=== PATIENT | male | born 1930 | race Caucasian/White ===

== ENCOUNTER → 2017-01-13 | Outpatient (CLI) | payer MEDICARE, BC ==
[~2017-01-13] MED LIST: ACET-2321 PO; ALBU0.63 AEROSOL; ASPI81TA2 PO; CIPR-151 PO; CLOP75TA PO; CRAN400C PO; FLUT9.9S NAS; FURO-153 PO; GUAI600T PO; LEVO50TA4 PO; LORA10TA62 PO; MAGN400O4 PO; OMEP20CA4 PO; POLY17PO6 PO; POTA10CA37 PO; PROP15DR OP; SENN1TAB79 PO; [UNRECOGNIZED DRUG - CODE] PO
[2017-01-13 19:17] LABS: BLOOD, URINE 1+ (NEGATIVE); COLOR,URINE YELLOW (YELLOW); LEUKOCYTE ESTERASE ,URINE 2+ (NEGATIVE); NITRITE,URINE POSITIVE (NEGATIVE); UROBILINOGEN,URINE 0.2 EU/DL (NORMAL)
[2017-01-13 19:26] LABS: BACTERIA,URINE 2+ (NEGATIVE)
== END ==
LOC: LABN.PM 19:08
PROVIDERS: ATTEND Family Medicine
DX: N39.0 Urinary tract infection, site not specified (principal)
CPT/HCPCS: 81001; 87086

== ENCOUNTER → 2017-01-27 | Outpatient (CLI) | payer MEDICARE, BC ==
[2017-01-27 06:21] LABS: BASOPHILS # (AUTO) 0.1 T/MM3 (0-0.2); BASOPHILS % (AUTO) 1.6 % (0-2); EOSINOPHILS # (AUTO) 0.3 T/MM3 (0-0.5); EOSINOPHILS % (AUTO) 6.1 % (0-4); HCT - HEMATOCRIT 37.9 % (41-53); HGB - HEMOGLOBIN 12.2 GM/DL (13.5-17.5); IMMATURE GRANULOCYTE # (AUTO) 0.01 T/MM3 (0.00-0.03); IMMATURE GRANULOCYTE % (AUTO) 0.2 % (0.0-0.5); LYMPHOCYTES # (AUTO) 1.5 T/MM3 (1-4.8); LYMPHOCYTES % (AUTO) 26.2 % (23-45); MEAN CORPUSCULAR HGB 28.8 UUG (26-34); MEAN CORPUSCULAR HGB CONC(MCHC 32.2 GM/DL (31-37); MEAN CORPUSCULAR VOLUME 89.4 UM3 (80-100); MONOCYTES # (AUTO) 0.2 T/MM3 (0-0.8); MONOCYTES % (AUTO) 4.3 % (0-9.0); NEUTROPHILS #(AUTO)-ABSOLUTE 3.4 T/MM3 (1.8-7.7); NEUTROPHILS % (AUTO) 61.6 % (33-66); RED BLOOD COUNT 4.24 M/MM3 (4.50-5.90); WBC - WHITE BLOOD COUNT 5.6 T/MM3 (4.5-11.0)
[2017-01-27 06:32] LABS: ANION GAP 10 MEQ/L (5-15); BUN/CREATININE RATIO 15 RATIO (6-26); CALCIUM 8.8 MG/DL (8.4-10.2); CHLORIDE 103 MEQ/L (98-107); CO2 - CARBON DIOXIDE 27 MEQ/L (22-30); CREATININE 0.8 MG/DL (0.8-1.5); GLOMERULAR FILTRATION RATE 91; GLUCOSE 90 MG/DL (75-110); MAGNESIUM 2.3 MG/DL (1.6-2.3); SODIUM 140 MEQ/L (134-144)
[2017-01-27 06:40] LABS: PROBNP 160 PG/ML (0-175)
== END ==
LOC: LABNH.PM 01:51
PROVIDERS: ATTEND Family Medicine
DX: D64.9 Anemia, unspecified (principal); I50.9 Heart failure, unspecified; R35.8 Other polyuria; Z79.899 Other long term (current) drug therapy
CPT/HCPCS: 36415; 80048; 83735; 83880; 85025; 86677; P9604

== ENCOUNTER → 2017-02-05 | Outpatient (CLI) | payer MEDICARE, BC ==
[2017-02-05 17:38] LABS: C. DIFFICILE TOXIN B NEGATIVE (NEGATIVE)
== END ==
LOC: LABN.PM 15:54
PROVIDERS: ATTEND Family Medicine
DX: A04.7 Enterocolitis due to Clostridium difficile (principal)
CPT/HCPCS: 87493

== ENCOUNTER 2017-02-18 18:20 | Emergency (ER) | payer MEDICARE, BC ==
[~2017-02-18] VITALS: Ht 170.2 cm; Wt 76.4 kg
[~2017-02-18 18:20] MED LIST changes: -[UNRECOGNIZED DRUG - CODE] PO; +[UNRECOGNIZED DRUG - CODE] SSW
--- OUTSIDE RECORDS SUMMARY | 2017-02-18 18:25 | XMS REPORT | Referral Summary ---
Author Organization Unknown Address Unknown Phone Unavailable Care Team Providers Care Investigation Specialist Name Role Phone Jun Lucio Primary Care Physician [phone] Encounter VC Date(s): 12/08/14 - 12/08/14 [facility], [address] [place] [id number]- Discharge Diagnosis: Hypothyroid Discharge Diagnosis: Polymyalgia rheumatica Discharge Diagnosis: Neurogenic bladder Discharge Diagnosis: Benign essential HTN Discharge Diagnosis: Constipation Discharge Diagnosis: Back pain Discharge Disposition: Home or Self Care Attending Physician: Stas Lucio MD Admitting Physician: Stas Lucio MD Vital Signs Most recent to 1 oldest [Reference Range]: Blood Pressure 130/70 mmHg [90-140/60-90 mmHg] (12/08/14 11:05 AM) Problem List Condition Effective Dates Status Health Status Informant Allergic Active rhinitis(Confirmed) arthritis(Confirmed) Resolved Back pain(Confirmed) Resolved Benign essential Resolved HTN(Confirmed) Benign essential Active hypertension(Confirm ed) 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) Cardiomegaly(Confirm Active ed) Cerebrovascular Resolved accident(Confirmed) Cerebrovascular Resolved disease(Confirmed) Chronic Active prostatitis(Confirme d) Chronic sinus Active infection(Confirmed) Conjunctivitis(Confi Active rmed) Constipation(Confirm Active ed) COPD(Confirmed) Resolved Generalized Active osteoarthrosis, involving multiple sites(Confirmed) Disorder - Active ulcers(Confirmed) Disorder - blood Active clots lungs/legs(Confirmed ) Diverticula, bladder Active - multiple, wide-mouth(Confirmed ) EDEMA(Confirmed) Resolved Hearing Active loss(Confirmed) hyperlipidemia(Confi Resolved rmed) hypertension(Confirm Resolved ed) Adult Active hypothyroidism(Confi rmed) Elevated blood Active sugar(Confirmed) LPRD Active (laryngopharyngeal reflux disease)(Confirmed) Neurogenic Resolved bladder(Confirmed) Overweight(Confirmed Active ) Chronic Active paraplegia(Confirmed ) Polymyalgia Resolved rheumatica(Confirmed ) Prostatism(Confirmed Active )1 TIA(Confirmed) Resolved Chicken Active pox(Confirmed) Vasomotor Active rhinitis(Confirmed) 1see conversion document Allergies, Adverse Reactions, Alerts Substance Reaction Severity Status azithromycin Active ciprofloxacin Adverse Reaction Active Unknown penicillin Unknown Active Eczema (rash) quinapril Adverse Reaction Active sulfamethoxazole Adverse Reaction Active sulfanilamide topical Unknown Active Medications [place] 5 mg-325 mg oral tablet 2 tabs, Oral, q8hr, [facility] [phone], # 30 tabs, 0 Refill(s) Special Instructions: [facility] [phone] Start Date: 07/12/14 Status: Ordered [place] 5 mg-325 mg oral tablet 1 tabs, Oral, q8hr, [facility] [phone], # 30 tabs, 0 Refill(s) Special Instructions: [facility] [phone] Start Date: 07/12/14 Status: Ordered oxyCODONE 5 mg oral tablet 0.5 tabs, Oral, q6hr, as needed for pain, 0 Refill(s) Start Date: 03/05/14 Status: Ordered Results Chemistry Most recent to 1 oldest [Reference Range]: Sodium Lvl [135-144 142 mEq/L mEq/L] (12/08/14 11:27 AM) Potassium Lvl 3.7 mEq/L [3.5-5.2 mEq/L] (12/08/14: AM) Chloride [99-111 106 mEq/L mEq/L] (12/08/14 11: AM) CO2 [23-31 mEq/L] 24 mEq/L (12/08/14: AM) AGAP [3-20] 12 (12/08/14 11: AM) BUN [8-26 mg/dL] 13 mg/dL (12/08/14 11: AM) Glucose Lvl [70-99 104 mg/dL mg/dL] *HI* (12/08/14: AM) Creatinine Lvl 0.83 mg/dL [0.72-1.25 mg/dL] (12/08/14: AM) eGFR [>60 mL/min] >60 mL/min 1 (12/08/14: AM) Calcium Lvl 9.2 mg/dL [8.9-10.5 mg/dL] (12/08/14 11:27 AM) Albumin Lvl [3.4-4.8 3.8 gm/dL gm/dL] (12/08/14 11:27 AM) Total Protein 6.2 gm/dL [6.2-8.1 gm/dL] (12/08/14 11:27 AM) Globulin [1.8-4.0 2.4 gm/dL gm/dL] (12/08/14 11:27 AM) ALT [0-55 unit/L] 16 unit/L (12/08/14 11:27 AM) AST [5-34 unit/L] 17 unit/L (12/08/14 11:27 AM) Alk Phos [40-150 117 unit/L unit/L] (12/08/14 11:27 AM) Bili Total [0.2-1.2 0.5 mg/dL mg/dL] (12/08/14 11:27 AM) TSH with Reflex Free 2.39 T4 [0.35-4.94] (12/08/14 11:27 AM) 1Result Comment: Multiply eGFR results by 1.21 for race. 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 Benign essential HTN This issue is stable and appropriate refills, lab, and f/ u have been discussed. The patient reports their blood pressure has been stable at home and is not having any significant or related problems. There has been no chest pain, chest pressure, soa/marie. Constipation Trial of linzess 145mg po daily for 14 days and call report. Side effects discussed. NH papers completed and returned. Recheck in at least 60 days. Hypothyroid This issue is stable and appropriate refills, lab, and f/u have been discussed. Recheck lab pending. Last TSH was a bit elevated and could contribute to constipation. Ordered: Comprehensive Metabolic Panel TSH with Reflex Free T4 Neurogenic bladder This issue is stable and appropriate refills, lab, and f/u have been discussed. Polymyalgia rheumatica This issue is stable and appropriate refills, lab, and f/u have been discussed.
--- OUTSIDE RECORDS SUMMARY | 2017-02-18 18:25 | XMS REPORT | Continuity of Care Document ---
Author Author Erica Brannon LPN Ambulatory Address [address] [place] [address] Phone Unavailable Care Team Providers Care Customer Service Advocate Name Role Phone Stas Lucio PP Unavailable Stas Lucio RP Unavailable Payers Payer name Insurance type Covered libertarian ID Authorization(s) Unknown Problems Condition Effective Dates (start - stop) Clinical Status Low back pain - *Chronic Spinal stenosis, unspecified region other than cer - *Chronic Hypertension, Benign - *Chronic Polymyalgia rheumatica - *Chronic Unspecified cerebrovascular disease - *Chronic Long-term Use of Anticoagulants - *Chronic BPH - *Chronic Other abnormal blood chemistry - *Chronic FM HX PROSTATE MALIG - PURE HYPERCHOLESTEROLEM - HYPERTENSION NOS - CARDIOMEGALY - TRANS CEREB ISCHEMIA NOS - ALLERGIC RHINITIS NEC - BPH W URINARY OBS/LUTS - GENERAL OSTEOARTHROSIS - OSTEOARTHROS NOS-L/LEG - 725 - POLYMYALGIA RHEUMATICA - Spinal stenosis of lumbar region - *Symptomatic 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 - * Controlled Family history of malignant neoplasm of prostate - *Routine Lumbago - *Acute Hypertension, Benign - *Chronic Unspecified cerebrovascular disease - *Chronic BPH - *Chronic Polymyalgia rheumatica - *Chronic Other and unspecified hyperlipidemia - *Chronic Polymyalgia rheumatica - *Chronic Hypertension, Benign - *Controlled Other and unspecified hyperlipidemia - *Chronic COPD - *Chronic BPH - *Controlled OTHER ABNORMAL GLUCOSE - *Controlled Hypertension, Benign - *Chronic Other and unspecified hyperlipidemia - *Chronic Osteoarthrosis, generalized, involving unspecified site - * Chronic Polymyalgia rheumatica - *Chronic OTHER ABNORMAL GLUCOSE - *Chronic BPH - *Chronic GERD - *Chronic Gout, unspecified - *Chronic Sinusitis, Acute - *Acute Hypertension, Benign - *Chronic Polymyalgia rheumatica - *Chronic Other and unspecified hyperlipidemia - *Chronic Lower extremity weakness - *Acute Lower back pain - *Acute Knee pain - *Chronic Polymyalgia rheumatica - *Chronic Hypertension, benign - *Chronic Benign prostatic hypertrophy - *Chronic Cerebrovascular disease, unspecified - *Chronic Other malaise and fatigue - *Chronic Polymyalgia rheumatica - *Chronic Allergic rhinitis, cause unspecified - *Chronic Long-term Use of Anticoagulants - *Chronic Other and unspecified hyperlipidemia - *Chronic Lumbago - *Chronic Long-term Use of Anticoagulants - *Chronic Hypertension, Benign - *Chronic Allergic rhinitis, cause unspecified - *Chronic BPH - *Controlled Osteoarthritis, Generalized - *Chronic Polymyalgia rheumatica - Remission Shoulder tendinitis - *Chronic Hypertension, Benign - *Chronic Other and unspecified hyperlipidemia - *Chronic COPD - *Chronic BPH - *Chronic Noninfectious Gastroenteritis - *Resolved Polymyalgia rheumatica - *Chronic GERD - *Chronic NEED FOR PROPHYLACTIC VACCINATION WITH COMBINED [id number] ( DTP) (DTAP) VACCINE - BPH - *Controlled Family history of malignant neoplasm of prostate - Asymptomatic Family History Family Member Diagnosis Age At Onset Status Mother (Unknown) Cancer - unknown Yes Father (Unknown) CAD Yes Social History Social History Element Description Quantity Unknown Allergies, Adverse Reactions, Alerts Substance Reaction Severity Status CIPROFLOXACIN Unknown Unknown PENICILLINS Unknown Unknown SULFANILAMIDE Unknown Unknown QUINAPRIL HCL Unknown Medications Medication Instructions Dosage Effective Dates (start - stop) Status Atrovent 0.06 % nasal spray 2 sprays to ea nostril tid prn - Active finasteride 5 mg tablet Take 1 tablet by mouth every day. - Active atenolol 50 mg tablet Take 1 tablet by mouth every day. - Active Lasix 20 mg tablet Take 0.5 tablets by mouth every day. - Active Immunizations Vaccine Date Status Comments Tdap (Boostrix r) completed pneumo (2 yrs or older) (PPV23) completed - Completed reason: source unspecified Td (adult) completed - Completed reason: source unspecified Results Test Name Date and Time Measure Units Reference Range Abnormal Flag Comments Unknown Vital Signs Date / Time: Height Weight Pulse Rate Blood Pressure Temperature /13:05:00 68.00 in 168.00 lbs 140/80 mm[Hg] 98.0 F Procedures Procedure Date Unknown Encounters Encounter Location Date Patient Visit [facility] Patient Visit Conversion Patient Visit [facility] Urology Patient Visit [facility] Patient Visit [facility] Patient Visit [facility] FC Pain Patient Visit [facility] Patient Visit [facility] Patient Visit [facility] New Patient Visit [facility] Patient Visit [facility] New Patient Visit [facility] Mur Rheum Patient Visit [facility] Patient Visit [facility] Patient Visit [facility] Mur Rheum Patient Visit [facility] Patient Visit [facility] Urology Patient Visit [facility] Advance Directives Directive Effective Date Unknown
--- OUTSIDE RECORDS SUMMARY | 2017-02-18 18:25 | XMS REPORT | Referral Summary ---
Author Author [facility] Organization [facility] Address Unknown Phone Unavailable Care Team Providers Care Coordinator Volunteer Services Name Role Phone Jun Lucio Primary Care Physician [phone] Encounter VC Date(s): 07/16/15 - 07/16/15 [facility] [address] [place] [address]- Discharge Disposition: 01-Home or Self Care Attending Physician: Stas Lucio MD Admitting Physician: Stas Lucio MD Vital Signs Most recent to 1 oldest [Reference Range]: Blood Pressure 120/60 mmHg [90-140/60-90 mmHg] (07/16/15 1:25 PM) Problem List Condition Effective Dates Status Health Status Informant Allergic Active rhinitis(Confirmed) arthritis(Confirmed) Resolved Back pain(Confirmed) Resolved Benign essential Resolved HTN(Confirmed) Benign essential Active hypertension(Confirm ed) 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) Cardiomegaly(Confirm Active ed) Cerebrovascular Resolved accident(Confirmed) Cerebrovascular Resolved disease(Confirmed) Chronic Active osteomyelitis of spine(Confirmed) Chronic Active prostatitis(Confirme d) Chronic sinus Active infection(Confirmed) Ho catheter Active problem(Confirmed) Conjunctivitis(Confi Active rmed) Constipation(Confirm Active ed) COPD(Confirmed) [...] rheumatica(Confirmed ) Prostatism(Confirmed Active )1 TIA(Confirmed) Resolved Chronic indwelling Active ho catheter(Confirmed) Chicken Active pox(Confirmed) Vasomotor Active rhinitis(Confirmed) 1see conversion document Allergies, Adverse Reactions, Alerts Substance Reaction Severity Status azithromycin Active Influenza Virus Vaccine1 Active penicillin Unknown Active Eczema (rash) quinapril Adverse Reaction Active sulfamethoxazole Adverse Reaction Active sulfanilamide topical Unknown Active 1[facility] documented as allergy. Medications [place] 5 mg-325 mg oral tablet 2 tabs, Oral, q8hr, [facility] [phone], # 30 tabs, 0 Refill(s) Start Date: 07/12/14 Status: Ordered [place] 5 mg-325 mg oral tablet 1 tabs, Oral, q8hr, [facility] [phone], # 30 tabs, 0 Refill(s) Start Date: 07/12/14 Status: Ordered oxyCODONE 5 mg oral tablet 0.5 tabs, Oral, q6hr, as needed for pain, 0 Refill(s) Start Date: 03/05/14 Status: Ordered Results No data available for this section Immunizations Vaccine Date Refusal Reason tetanus/diphth/pertuss (Tdap) [...] smoker Assessment and Plan Extracted from: Title: Ambulatory Patient Education Author: Stas Lucio MD Date: Family Medicine Diabetes and Exercise Exercising regularly is important. It is not just about losing weight. It has many health benefits, such as: Improving your overall fitness, flexibility, and endurance. Increasing your bone density. Helping with weight control. Decreasing your body fat. Increasing your muscle strength. Reducing stress and tension. Improving your overall health. People with diabetes who exercise gain additional benefits because exercise: Reduces appetite. Improves the body's use of blood sugar (glucose). Helps lower or control blood glucose. Decreases blood pressure. Helps control blood lipids (such as cholesterol and triglycerides). Improves the body's use of the hormone insulin by: Increasing the body's insulin sensitivity. Reducing the body's insulin needs. Decreases the risk for heart disease because exercising: Lowers cholesterol and triglycerides levels. Increases the levels of good cholesterol (such as high-density lipoproteins [HDL]) in the body. Lowers blood glucose levels. YOUR ACTIVITY PLAN Choose an activity that you enjoy and set realistic goals. Your health care provider or letter of credit clerk can help you make an activity plan that works for you. Exercise regularly as directed by your health care provider. This includes: Performing resistance training twice a week such as push-ups, sit-ups, lifting weights, or using resistance bands. Performing 150 minutes of cardio exercises each week such as walking, running, or playing sports. Staying active and spending no more than 90 minutes at one time being inactive. Even short bursts of exercise are good for you. Three 10-minute sessions spread throughout the day are just as beneficial as a single 30-minute session. Some exercise ideas include: Taking the dog for a walk. Taking the stairs instead of the elevator. Dancing to your favorite song. Doing an exercise video. Doing your favorite exercise with a friend. RECOMMENDATIONS FOR EXERCISING WITH TYPE 1 OR TYPE 2 DIABETES Check your blood glucose before exercising. If blood glucose levels are greater than 240 mg/dL, check for urine ketones. Do not exercise if ketones are present. Avoid injecting insulin into areas of the body that are going to be exercised. For example, avoid injecting insulin into: The arms when playing tennis. The legs when jogging. Keep a record of: Food intake before and after you exercise. Expected peak times of insulin action. Blood glucose levels before and after you exercise. The type and amount of exercise you have done. Review your records with your health care provider. Your health care provider will help you to develop guidelines for adjusting food intake and insulin amounts before and after exercising. If you take insulin or oral hypoglycemic agents, watch for signs and symptoms of hypoglycemia. They include: Dizziness. Shaking. Sweating. Chills. Confusion. Drink plenty of water while you exercise to prevent dehydration or heat stroke. Body water is lost during exercise and must be replaced. Talk to your health care provider before starting an exercise program to make sure it is safe for you. Remember, almost any type of activity is better than none. Document Released: 12/11/2004 Document Revised: 02/05/2015 Document Reviewed: [employer] Patient Information 2015 [employer]. This information is not intended to replace advice given to you by your health care provider. Make sure you discuss any questions you have with your health care provider. No follow up information was provided. Extracted from: Title: Office Visit Note Author: Stas Lucio MD Date: 07/16/15 Assessment/Plan Adult hypothyroidism This issue is stable and appropriate refills, lab, and f/ u have been discussed. Benign essential HTN This issue is stable and appropriate refills, lab, and f/ u have been discussed. The patient reports their blood pressure has been stable at home and is not having any significant or related problems. There has been no chest pain, chest pressure, soa/marie. Chronic indwelling ho catheter This issue is stable and appropriate refills, lab, and f/u have been discussed. Recently changed in the ER on 07/12. UA showed 3+ blood from the ER. Chronic osteomyelitis of spine This issue is stable and appropriate refills, lab, and f/u have been discussed. Chronic paraplegia This issue is stable and appropriate refills, lab, and f/u have been discussed. The patients group home orders were completed and returned. Any family present agreed with the current plan. The patient is to f/ u in sixty days or sooner if needed. Any pertinent lab was also ordered. The patient has family members present who are agreeable with today's plan and have no additional concerns or requests. [facility] aid here. Disorder - blood clots lungs/legs This issue is stable and appropriate refills , lab, and f/u have been discussed. Ho catheter problem The patient's issue is nearly or completely resolved. There is no further issues or testing desired by them at this time. Hearing loss This issue is stable and appropriate refills, lab, and f/u have been discussed. Neurogenic bladder This issue is stable and appropriate refills, lab, and f/u have been discussed. Polymyalgia rheumatica To Rheumatology due to recent ESR of 71 and CRP of 40. Somewhat argumentative about the need for this consult but felt to be medically worthwhile due to continued bilateral shoulder pain and past PMR.
--- OUTSIDE RECORDS SUMMARY | 2017-02-18 18:25 | XMS REPORT | Continuity of Care Document ---
Author Author [facility] Organization [facility] Address Unknown Phone Unavailable Allergies Active Description Code Type Severity Reaction Onset Reported/Identified Relationship to Patient Clinical Status Yes Biaxin Drug Allergy N/A Adverse Reaction 09/15/2013 Yes Cipro Drug Allergy N/A Adverse Reaction 09/15/2013 Yes Penicillins Drug Allergy Moderate Eczema (rash) 09/15/2013 Yes quinapril Drug Allergy N/A Adverse Reaction 09/15/2013 Yes Sulfa (Sulfonamide Antibiotics Drug Allergy N/A Adverse Reaction 09/15/2013 Yes No Known Food Allergies Food Allergy N/A N/A 12/27/2013 Yes ciprofloxacin NKMA N/A Adverse Reaction Unknown 01/31/2014 Yes penicillin NKMA N/A Unknown Eczema (rash) 01/31/2014 Yes quinapril NKMA N/A Adverse Reaction 01/31/2014 Yes sulfamethoxazole NKMA N/A Adverse Reaction 01/31/2014 Yes sulfanilamide topical NKMA N/A Unknown 01/31/2014 Yes azithromycin NKMA N/A N/A 06/22/2014 Yes Influenza Virus Vaccine NKMA N/A N/A 07/06/2015 Medications Problems Date Dx Coded Attending Type Code Diagnosis Diagnosed By 09/15/2013 Neto GARCIA, Kingsley J Final 112.0 THRUSH 09/15/2013 Neto GARCIA, Kingsley J Final 276.1 HYPOSMOLALITY 09/15/2013 Neto GARCIA, Kingsley J Final 276.69 FLUID OVERLOAD NEC 09/15/2013 Neto GARCIA, Kingsley J Final 285.1 ACUTE POSTHEMOR ANEMIA 09/15/2013 Neto GARCIA, Kingsley J Final 344.1 PARAPLEGIA 09/15/2013 Neto GARCIA, Kingsley J Final 348.30 ENCEPHALOPATHY NOS 09/15/2013 Neil Duque MDolfo J Final 401.0 MALIGNANT HYPERTENSION 09/15/2013 Neto GARCIA Kingsley J Final 453.42 ACUTE DVT DISTAL LEG 09/15/2013 Neto GARCIA, Kingsley J Final 458.0 ORTHOSTATIC HYPOTENSION 09/15/2013 Neil Duque MDolfo Tasneem Final 600.00 PROS HYPERTR S OBST/LUTS 09/15/2013 Neto GARCIA, Kingsley J Final 608.86 EDEMA MALE GENITAL ORGAN 09/15/2013 Neto GARCIA, Kingsley J Final 695.89 ERYTHEMATOUS COND NEC 09/15/2013 Neil Duque MDolfo J Final 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 09/15/2013 Christiane Duque MDfo Tasneem Final 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 09/15/2013 Neil Duque MDolrhonda Boateng Final 998.12 HEMATOMA COMPLICATING PX 09/15/2013 Neil Duque MDolfo Tasneem Final V49.86 DNR STATUS 12/27/2013 Ganga Hester MD Final 276.8 HYPOPOTASSEMIA 12/27/2013 Ganga Hester MD Final 401.9 HYPERTENSION NOS 12/27/2013 Ganga Hester MD Final 435.9 TRANS CEREB ISCHEMIA NOS 12/27/2013 Ganga Hester MD Final 530.81 ESOPHAGEAL REFLUX 12/27/2013 Ganga Hester MD Final 600.00 PROS HYPERTR S OBST/LUTS 12/27/2013 Ganga Hester MD Final 724.02 SP STENOSIS-LUMB S KLAUS 12/27/2013 Ganga Hester MD Final 780.97 ALTERED MENTAL STATUS 12/27/2013 Ganga Hester MD Final 998.83 NON-HEALING SURG WND 12/27/2013 Ganga Hester MD External E878.8 ABN RXN-SURGICAL PX NEC 12/27/2013 Gagna Hester MD Final V12.51 HX TRACY THROMBUS/EMBOLISM Procedures Code Description Performed By Performed On 12.11 SPINAL CANAL EXPLOR Vladimir Ivey III, MD 09/16/2013 38.7 INTERRUPTION VENA CAVA Vladimir Castle III, MD 09/16/2013 77.79 EXC BONE FOR GRAFT Vladimir Ivey III, MD 09/16/2013 80.51 IV DISC EXCISION Vladimir Castle III, MD 09/16/2013 81.05 POSTERIOR DORSAL FUSION Vladimir Castle III, MD 09/16/2013 81.62 REPLACE FEMORAL HEAD NEC Vladimir Castle III, MD 09/16/2013 03.02 REOPEN LAMINECTOMY SITE Vladimir Castle III, MD 09/27/2013 38.93 VENOUS CATHETER NEC Vladimir Castle III, MD 10/10/2013 Results Encounters ACCT No. Visit Date/Time Discharge Status Pt. Type Provider Facility Loc./Unit Complaint [id number] 12/27/2013 11:36:00 2013 16:43:00 DIS Inpatient Mir GARCIA, Ganga Lema [facility] [id number] [id number] 09/15/2013 18:50:00 2013 12:50:00 DIS Inpatient Neto GARCIA, Kingsley Boateng [facility] [id number]
--- OUTSIDE RECORDS SUMMARY | 2017-02-18 18:25 | XMS REPORT | Continuity of Care Document ---
Author Author Verito Acuña MA [facility] Ambulatory Address [address] [place] [address] Phone Care Team Providers Care Corrections Officer Name Role Phone Stas Lucio PP Unavailable Stas Lucio RP Unavailable Payers Payer name Insurance type Covered republican ID Authorization(s) Unknown Problems Condition Effective Dates (start - stop) Clinical Status Osteoarthritis, Generalized - *Chronic Polymyalgia rheumatica - Remission Shoulder tendinitis - *Chronic FM HX PROSTATE MALIG - [...] cause unspecified - *Chronic BPH - *Controlled Hypertension, Benign - *Chronic Other and unspecified hyperlipidemia - *Chronic COPD - *Chronic BPH - *Chronic Noninfectious Gastroenteritis - *Resolved Polymyalgia rheumatica - *Chronic GERD - *Chronic NEED FOR PROPHYLACTIC VACCINATION WITH COMBINED [id number] ( DTP) (DTAP) VACCINE - Low back pain - *Chronic Spinal stenosis, unspecified region other than cer - *Chronic Hypertension, Benign - *Chronic Polymyalgia rheumatica - *Chronic Unspecified cerebrovascular disease - *Chronic Long-term Use of Anticoagulants - *Chronic BPH - *Chronic Other abnormal blood chemistry - *Chronic BPH - *Controlled Family history of malignant neoplasm of prostate - Asymptomatic Family History Family Member Diagnosis Age At Onset Status Mother (Unknown) Cancer - unknown Yes Father (Unknown) CAD Yes Social History Social History Element Description Quantity caffeine coffee 1 per wk Allergies, Adverse Reactions, Alerts Substance Reaction Severity Status CIPROFLOXACIN Unknown Unknown PENICILLINS Unknown Unknown SULFANILAMIDE Unknown Unknown QUINAPRIL HCL Unknown Medications Medication Instructions Dosage Effective Dates (start - stop) Status Atrovent 0.06 % Nasal [place] 2 sprays to ea nostril tid prn [...] Height Weight Pulse Rate Blood Pressure Temperature /09:50:00 68.00 in 172.30 lbs 55 /min 184/93 mm[Hg] 96.5 F Procedures Procedure Date Unknown Encounters Encounter Location Date Patient Visit [facility] Mur Rheum Patient Visit Conversion Patient Visit [facility] Urology Patient Visit [facility] New FM Patient Visit [facility] New FM Patient Visit [facility] FC Pain Patient Visit [facility] Patient Visit [facility] FM Patient Visit [facility] New FM Patient Visit [facility] New FM Patient Visit [facility] Patient Visit [facility] Rheum Patient Visit [facility] Patient [facility] Patient Visit [facility] Patient Visit [facility] Patient Visit [facility] Urology Patient Visit [facility] Advance Directives Directive Effective Date Unknown
--- OUTSIDE RECORDS SUMMARY | 2017-02-18 18:25 | XMS REPORT | Referral Summary ---
Author Author [facility] Organization [facility] Address Unknown Phone Unavailable Care Team Providers Care Maternity Nurse Name Role Phone Storm Patino Primary Care Physician [phone] Encounter VC Date(s): 05/15/15 - 05/15/15 [facility] [address] [place] [address]- Discharge Disposition: 01-Home or Self Care Attending Physician: Stas Lucio MD Admitting Physician: Stas Lucio MD Vital Signs Most recent to 1 oldest [Reference Range]: Blood Pressure 140/80 mmHg [90-140/60-90 mmHg] (05/15/15 3:05 PM) Problem List Condition Effective Dates Status [...] Reaction Active sulfanilamide topical Unknown Active [facility] documented as allergy. Medications acetaminophen 325 mg oral tablet 650 mg 2 tabs, Oral, q4hr, 0 Refill(s) Start Date: 07/24/15 Status: Ordered Alaway 0.025% ophthalmic solution 1 drops, Eye-Both, q8hr, # 10 mL, 0 Refill(s) Start Date: 07/24/15 Status: Ordered aspirin 81 mg oral tablet 81 mg 1 tabs, Oral, TID, NEEDED FOR CANCER PAIN, 0 Refill(s) Start Date: 07/24/15 Status: Ordered Atrovent 42 mcg/inh nasal spray 2 sprays, Nasal, BID, # 15 mL, 0 Refill(s) Start Date: 07/24/15 Status: Ordered baclofen 10 mg oral tablet See Instructions, 1 tabs Oral BID AND 1.5 TABS AT HS, 0 Refill(s), Indication: MUSCLE SPASMS Start Date: 07/24/15 Status: Ordered cefdinir 300 mg oral capsule 300 mg 1 caps, Oral, q12hr, # 20 caps, 0 Refill(s) Start Date: 07/24/15 Stop Date: 08/03/15 Status: Ordered Cipro 500 mg oral tablet 500 mg 1 tabs, Oral, q24hr, PROPHYLAXIS PER DR HONG, 0 Refill(s) Start Date: 07/24/15 Status: Ordered Fleet Enema 118 mL, Rectal, Once, as needed for constipation, 0 Refill(s) Start Date: 07/24/15 Status: Ordered Lasix 40 mg oral tablet 40 mg 1 tabs, Oral, Daily, # 30 tabs, 0 Refill(s) Start Date: 07/24/15 Status: Ordered Micro-K 10 oral capsule, extended release 10 mEq 1 caps, Oral, BID, # 60 caps, 0 Refill(s) Start Date: 07/24/15 Status: Ordered Milk of Magnesia 30 mL, Oral, Bedtime (once a day), 0 Refill(s) Start Date: 07/24/15 Status: Ordered MiraLax oral powder for reconstitution 17 g, Oral, Daily, dissolve in water before taking, # 255 g, 0 Refill(s) Start Date: 07/24/15 Status: Ordered Miscellaneous DME DME Item KNEE HIGH COMPRESSION STOCKINGS 15-20MMHG ON IN AM & OFF AT HS, See Instructions, # 1 Each, 0 Refill(s), Supply Start Date: 07/24/15 Status: Ordered [place] 5 mg-325 mg oral tablet 2 tabs, Oral, q8hr, [employer] [phone], # 30 tabs, 0 Refill(s) Start Date: 07/12/14 Status: Ordered [place] 5 mg-325 mg oral tablet 1 tabs, Oral, q8hr, [employer] [phone], # 30 tabs, 0 Refill(s) Start Date: 07/12/14 Status: Ordered Norvasc 5 mg oral tablet 5 mg 1 tabs, Oral, Daily, # 30 tabs, 0 Refill(s) Start Date: 07/24/15 Status: Ordered nystatin 500,000U/5ML, Oral, BID, 0 Refill(s) Start Date: 07/24/15 Status: Ordered oxyCODONE 5 mg oral tablet 0.5 tabs, Oral, q6hr, as needed for pain, 0 Refill(s) Start Date: 03/05/14 Status: Ordered Plavix 75 mg oral tablet 75 mg 1 tabs, Oral, Daily, # 30 tabs, 0 Refill(s) Start Date: 07/24/15 Status: Ordered PriLOSEC 20 mg oral delayed release capsule 20 mg 1 caps, Oral, BID, 0 Refill(s) Start Date: 07/24/15 Status: Ordered Senna 8.6 mg, Oral, BID, + 50MG COLACE, 0 Refill(s) Start Date: 07/24/15 Status: Ordered Simply Saline 3% nasal spray 1 sprays, Nasal, BID, NEEDED, 0 Refill(s) Start Date: 07/24/15 Status: Ordered Synthroid 50 mcg (0.05 mg) oral tablet 50 mcg 1 tabs, Oral, Daily, # 90 tabs, 0 Refill(s) Start Date: 07/24/15 Status: Ordered Results No data available for [...] Patient Education Author: Stas Lucio MD Date: 08/19 Allergy Allergies Allergies may happen from anything your body is sensitive to. This may be food, medicines, pollens, chemicals, and nearly anything around you in everyday life that produces allergens. An allergen is anything that causes an allergy producing substance. Heredity is often a factor in causing these problems. This means you may have some of the same allergies as your parents. Food allergies happen in all age groups. Food allergies are some of the most severe and life threatening. Some common food allergies are cow's milk, seafood , eggs, nuts, wheat, and soybeans. SYMPTOMS Swelling around the mouth. An itchy red rash or hives. Vomiting or diarrhea. Difficulty breathing. SEVERE ALLERGIC REACTIONS ARE LIFE-THREATENING. This reaction is called anaphylaxis. It can cause the mouth and throat to swell and cause difficulty with breathing and swallowing. In severe reactions only a trace amount of food (for example, peanut oil in a salad) may cause within seconds. Seasonal allergies occur in all age groups. These are seasonal because they usually occur during the same season every year. They may be a reaction to molds , grass pollens, or tree pollens. Other causes of problems are house dust mite allergens, pet dander, and mold spores. The symptoms often consist of nasal congestion, a runny itchy nose associated with sneezing, and tearing itchy eyes. There is often an associated itching of the mouth and ears. The problems happen when you come in contact with pollens and other allergens. Allergens are the particles in the air that the body reacts to with an allergic reaction. This causes you to release allergic antibodies. Through a chain of events, these eventually cause you to release histamine into the blood stream. Although it is meant to be protective to the body, it is this release that causes your discomfort. This is why you were given anti-histamines to feel better. If you are unable to pinpoint the offending allergen, it may be determined by skin or blood testing. Allergies cannot be cured but can be controlled with medicine. Hay fever is a collection of all or some of the seasonal allergy problems. It may often be treated with simple [id number] medicine such as diphenhydramine. Take medicine as directed. Do not drink alcohol or drive while taking this medicine. Check with your caregiver or package insert for child dosages. If these medicines are not effective, there are many new medicines your caregiver can prescribe. Stronger medicine such as nasal spray, eye drops, and corticosteroids may be used if the first things you try do not work well. Other treatments such as immunotherapy or desensitizing injections can be used if all else fails. Follow up with your caregiver if problems continue. These seasonal allergies are usually not life threatening. They are generally more of a nuisance that can often be handled using medicine. HOME CARE INSTRUCTIONS If unsure what causes a reaction, keep a diary of foods eaten and symptoms that follow. Avoid foods that cause reactions. If hives or rash are present: Take medicine as directed. You may use an gdeg-cad-nypzahg antihistamine (diphenhydramine) for hives and itching as needed. Apply cold compresses (cloths) to the skin or take baths in cool water. Avoid hot baths or showers. Heat will make a rash and itching worse. If you are severely allergic: Following a treatment for a severe reaction, hospitalization is often required for closer follow-up. Wear a medic-alert bracelet or necklace stating the allergy. You and your family must learn how to give adrenaline or use an anaphylaxis kit. If you have had a severe reaction, always carry your anaphylaxis kit or EpiPen with you. Use this medicine as directed by your caregiver if a severe reaction is occurring. Failure to do so could have a fatal outcome. SEEK MEDICAL CARE IF: You suspect a food allergy. Symptoms generally happen within 30 minutes of eating a food. Your symptoms have not gone away within 2 days or are getting worse. You develop new symptoms. You want to retest yourself or your child with a food or drink you think causes an allergic reaction. Never do this if an anaphylactic reaction to that food or drink has happened before. Only do this under the care of a caregiver. SEEK IMMEDIATE MEDICAL CARE IF: You have difficulty breathing, are wheezing, or have a tight feeling in your chest or throat. You have a swollen mouth, or you have hives, swelling, or itching all over your body. You have had a severe reaction that has responded to your anaphylaxis kit or an EpiPen. These reactions may return when the medicine has worn off. These reactions should be considered life threatening. MAKE SURE YOU: Understand these instructions. Will watch your condition. Will get help right away if you are not doing well or get worse. Document Released: 12/15/2003 Document Revised: 01/16/2014 Document Reviewed: [facility] Patient Information 2015 [employer]. This information is not intended to replace advice given to you by your health care provider. Make sure you discuss any questions you have with your health care provider. No follow up information was provided. Extracted from: Title: Office Visit Note Author: Stas Lucio MD Date: 05/15/15 Assessment/Plan Acute pain of left shoulder Has an appt with Dr. Morales on 05/28. Declines an xray or other intervention a this time. Already doing PT. Adult hypothyroidism This issue is stable and appropriate refills, lab, and f/u have been discussed. Declines lab at this visit. Allergic rhinitis This issue is stable and appropriate refills, lab, and f/u have been discussed. The patients half-way orders were completed and returned. Any family present agreed with the current plan. The patient is to f/ u in sixty days or sooner if needed. Any pertinent lab was also ordered. 8 pages of [place] papers completed. Benign essential hypertension This issue is stable and appropriate refills, lab, and f/u have been discussed. BP journal normal at the [place]. The patient has family members present who are agreeable with today's plan and have no additional concerns or requests. The patient reports their blood pressure has been stable at home and is not having any significant or related problems. There has been no chest pain, chest pressure, soa/marie. Chronic osteomyelitis of spine This issue is stable and appropriate refills, lab, and f/u have been discussed. Outside records from [place] reviewed from and the patient is to continue cipro indefinitely.Lab from [facility] reviewed and ESR was 8. Chronic paraplegia This issue is stable and appropriate refills, lab, and f/u have been discussed. Neurogenic bladder This issue is stable and appropriate refills, lab, and f/u have been discussed. Seeing Urology.
--- OUTSIDE RECORDS SUMMARY | 2017-02-18 18:25 | XMS REPORT | Referral Summary ---
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 Medications acetaminophen 325 mg [...] Refill(s), Supply Start Date: 07/24/15 Status: Ordered Jonancy 5 mg-325 mg oral tablet 2 tabs, Oral, q8hr, [facility] [phone], # 30 tabs, 0 Refill(s) Start Date: 07/12/14 Status: Ordered Jonancy 5 mg-325 mg oral tablet 1 tabs, Oral, q8hr, [facility] [phone], # 30 tabs, 0 Refill(s) Start Date: [...] Author: Stas Lucio MD Date: Family Medicine Arterial Hypertension Arterial hypertension (high blood pressure ) is a condition of elevated pressure in your blood vessels. Hypertension over a long period of time is a risk factor for strokes, heart attacks, and heart failure. It is also the leading cause of kidney (renal ) failure. CAUSES In Adults -- Over 90% of all hypertension has no known cause. This is called essential or primary hypertension. In the other 10% of people with hypertension, the increase in blood pressure is caused by another disorder. This is called secondary hypertension . Important causes of secondary hypertension are: Heavy alcohol use. Obstructive sleep apnea. Hyperaldosterosim (Conn's syndrome). Steroid use. Chronic kidney failure. Hyperparathyroidism. Medications. Renal artery stenosis. Pheochromocytoma. Ashburn's disease. Coarctation of the aorta. Scleroderma renal crisis. Licorice (in excessive amounts). Drugs (cocaine, methamphetamine). Your caregiver can explain any items above that apply to you. In Children -- Secondary hypertension is more common and should always be considered. -- Few women of childbearing age have high blood pressure. However, up to 10% of them develop hypertension of . Generally, this will not harm the woman. It may be a sign of 3 complications of : preeclampsia, HELLP syndrome, and eclampsia. Follow up and control with medication is necessary. SYMPTOMS This condition normally does not produce any noticeable symptoms. It is usually found during a routine exam. Malignant hypertension is a late problem of high blood pressure. It may have the following symptoms: Headaches. Blurred vision. End-organ damage (this means your kidneys, heart, lungs, and other organs are being damaged). Stressful situations can increase the blood pressure. If a person with normal blood pressure has their blood pressure go up while being seen by their caregiver, this is often termed "white coat hypertension." Its importance is not known. It may be related with eventually developing hypertension or complications of hypertension. Hypertension is often confused with mental tension, stress, and anxiety. DIAGNOSIS The diagnosis is made by 3 separate blood pressure measurements. They are taken at least 1 week apart from each other. If there is organ damage from hypertension, the diagnosis may be made without repeat measurements. Hypertension is usually identified by having blood pressure readings: Above 140/90 mmHg measured in both arms, at 3 separate times, over a couple weeks. Over 130/80 mmHg should be considered a risk factor and may require treatment in patients with diabetes. Blood pressure readings over 120/80 mmHg are called "pre-hypertension" even in non-diabetic patients. To get a true blood pressure measurement, use the following guidelines. Be aware of the factors that can alter blood pressure readings. Take measurements at least 1 hour after caffeine. Take measurements 30 minutes after smoking and without any stress. This is another reason to quit smoking it raises your blood pressure. Use a proper cuff size. Ask your caregiver if you are not sure about your cuff size. Most home blood pressure cuffs are automatic. They will measure systolic and diastolic pressures. The systolic pressure is the pressure reading at the start of sounds. Diastolic pressure is the pressure at which the sounds disappear. If you are elderly, measure pressures in multiple postures. Try sitting, lying or standing. Sit at rest for a minimum of 5 minutes before taking measurements. You should not be on any medications like decongestants. These are found in many cold medications. Record your blood pressure readings and review them with your caregiver. If you have hypertension: Your caregiver may do tests to be sure you do not have secondary hypertension (see "causes" above). Your caregiver may also look for signs of metabolic syndrome. This is also called Syndrome X or Insulin Resistance Syndrome. You may have this syndrome if you have type 2 diabetes, abdominal obesity, and abnormal blood lipids in addition to hypertension. Your caregiver will take your medical and family history and perform a physical exam. Diagnostic tests may include blood tests (for glucose, cholesterol, potassium, and kidney function), a urinalysis, or an EKG. Other tests may also be necessary depending on your condition. PREVENTION There are important lifestyle issues that you can adopt to reduce your chance of developing hypertension: Maintain a normal weight. Limit the amount of salt (sodium ) in your diet. Exercise often. Limit alcohol intake. Get enough potassium in your diet. Discuss specific advice with your caregiver. Follow a DASH diet (dietary approaches to stop hypertension). This diet is rich in fruits, vegetables, and low-fat dairy products, and avoids certain fats. PROGNOSIS Essential hypertension cannot be cured. Lifestyle changes and medical treatment can lower blood pressure and reduce complications. The prognosis of secondary hypertension depends on the underlying cause. Many people whose hypertension is controlled with medicine or lifestyle changes can live a normal, healthy life. RISKS AND COMPLICATIONS While high blood pressure alone is not an illness, it often requires treatment due to its short- and long-term effects on many organs. Hypertension increases your risk for: CVAs or strokes (cerebrovascular accident ). Heart failure due to chronically high blood pressure (hypertensive cardiomyopathy ). Heart attack (myocardial infarction ). Damage to the retina (hypertensive retinopathy ). Kidney failure (hypertensive nephropathy ). Your caregiver can explain list items above that apply to you. Treatment of hypertension can significantly reduce the risk of complications. TREATMENT For overweight patients, weight loss and regular exercise are recommended. Physical fitness lowers blood pressure. Mild hypertension is usually treated with diet and exercise. A diet rich in fruits and vegetables, fat-free dairy products, and foods low in fat and salt (sodium ) can help lower blood pressure. Decreasing salt intake decreases blood pressure in a 1/3 of people. Stop smoking if you are a smoker. The steps above are highly effective in reducing blood pressure. While these actions are easy to suggest, they are difficult to achieve. Most patients with moderate or severe hypertension end up requiring medications to bring their blood pressure down to a normal level. There are several classes of medications for treatment. Blood pressure pills (antihypertensives ) will lower blood pressure by their different actions. Lowering the blood pressure by 10 mmHg may decrease the risk of complications by as much as 25%. The goal of treatment is effective blood pressure control. This will reduce your risk for complications. Your caregiver will help you determine the best treatment for you according to your lifestyle. What is excellent treatment for one person, may not be for you. HOME CARE INSTRUCTIONS Do not smoke. Follow the lifestyle changes outlined in the "Prevention" section. If you are on medications, follow the directions carefully. Blood pressure medications must be taken as prescribed. Skipping doses reduces their benefit. It also puts you at risk for problems. Follow up with your caregiver, as directed. If you are asked to monitor your blood pressure at home, follow the guidelines in the "Diagnosis" section above. SEEK MEDICAL CARE IF: You think you are having medication side effects. You have recurrent headaches or lightheadedness. You have swelling in your ankles. You have trouble with your vision. SEEK IMMEDIATE MEDICAL CARE IF: You have sudden onset of chest pain or pressure, difficulty breathing, or other symptoms of a heart attack. You have a severe headache. You have symptoms of a stroke (such as sudden weakness, difficulty speaking , difficulty walking). MAKE SURE YOU: Understand these instructions. Will watch your condition. Will get help right away if you are not doing well or get worse. Document Released: 09/21/2006 Document Revised: 12/13/2012 Document Reviewed: [facility] Patient Information 2014 [employer]. No follow up information was provided. Extracted from: Title: Office Visit Note Author: Stas Lucio MD Date: 02/15/15 Assessment/Plan Adult hypothyroidism This issue is stable and appropriate refills, lab, and f/ u have been discussed. The patient has family members present who are agreeable with today's plan and have no additional concerns or requests. Back pain This issue is stable and appropriate refills, lab, and f/u have been discussed. Benign essential HTN This issue is stable and appropriate refills, lab, and f/ u have been discussed. The patient reports their blood pressure has been stable at home and is not having any significant or related problems. There has been no chest pain, chest pressure, soa/marie. Cerebrovascular disease This issue is stable and appropriate refills, lab, and f/u have been discussed. The patients [facility] orders were completed and returned. Any family present agreed with the current plan. The patient is to f/u in sixty days or sooner if needed. Any pertinent lab was also ordered. Chronic indwelling ho catheter This issue is stable and appropriate refills , lab, and f/u have been discussed. Seeing Dr. ROSAS when needed. Constipation The patient is here for an ongoing issue. They have been evaluated and treated in the past. Any past testing, xray's, lab, or consults have been reviewed if available. The patient may have been seen by an outside physician and/or IC too. Stop linzess and trial of amitiza 8mg po daily and call report in 14 days or sooner prn. May titrate if needed to 24mg daily. Neurogenic bladder This issue is stable and appropriate refills, lab, and f/u have been discussed. See above. Polymyalgia rheumatica This issue is stable and appropriate refills, lab, and f/u have been discussed. Declines a consult with rheumatology. Lab pending.
--- OUTSIDE RECORDS SUMMARY | 2017-02-18 18:25 | XMS REPORT | Referral Summary ---
Author Author [facility] Organization [facility] Address Unknown Phone Unavailable Care Team Providers Care Administrative Resident Name Role Phone Jun Lucio Primary Care Physician [phone] Encounter VC Date(s): 07/06/15 - 07/06/15 [facility] [address] [place] [address] Discharge Diagnosis: Chronic paraplegia Discharge Diagnosis: Decubitus ulcer of foot, stage 1 Discharge Disposition: 01-Home or Self Care Attending Physician: Di Call PA-C Admitting Physician: Di Call PA-C Vital Signs Most recent to 1 oldest [Reference Range]: Temperature Tympanic 36.3 degC [36.6-38.1 degC] *LOW* (07/06/15 9:30 AM) Peripheral Pulse 76 bpm Rate [60-100 bpm] (07/06/15 9:30 AM) Respiratory Rate 20 br/min [14-20 br/min] (07/06/15 9:30 AM) Blood Pressure 124/72 mmHg [90-140/60-90 mmHg] (07/06/15 9:30 AM) Problem List Condition Effective Dates Status [...] Reaction Active sulfanilamide topical Unknown Active [facility] documented as allergy. Medications Reno 5 mg-325 mg oral tablet 2 tabs, Oral, q8hr, [facility] [phone], # 30 tabs, 0 Refill(s) Start Date: 07/12/14 Status: Ordered Reno 5 mg-325 mg oral tablet 1 tabs, Oral, q8hr, [facility] [phone], # 30 tabs, 0 Refill(s) Start Date: [...] Extracted from: Title: Ambulatory Patient Education Author: Di Call PA-C Date : 07/06/15 Family Medicine Pressure Ulcer A pressure ulcer is a sore that has formed from the breakdown of skin and exposure of deeper layers of tissue. It develops in areas of the body where there is unrelieved pressure. Pressure ulcers are usually found over a bony area , such as the shoulder blades, spine, lower back, hips, knees, ankles, and heels. Pressure ulcers vary in severity. Your health care provider may determine the severity (stage) of your pressure ulcer. The stages include: Stage IThe skin is red, and when the skin is pressed, it stays red. Stage IIThe top layer of skin is gone, and there is a shallow, pink ulcer. Stage IIIThe ulcer becomes deeper, and it is more difficult to see the whole wound. Also, there may be yellow or brown parts, as well as pink and red parts. Stage IVThe ulcer may be deep and red, pink, brown, white, or yellow. Bone or muscle may be seen. Unstageable pressure ulcerThe ulcer is covered almost completely with black, brown, or yellow tissue. It is not known how deep the ulcer is or what stage it is until this covering comes off. Suspected deep tissue injuryA person's skin can be injured from pressure or pulling on the skin when his or her position is changed. The skin appears purple or maroon. There may not be an opening in the skin, but there could be a blood-filled blister. This deep tissue injury is often difficult to see in people with darker skin tones. The site may open and become deeper in time. However, early interventions will help the area heal and may prevent the area from opening. CAUSES Pressure ulcers are caused by pressure against the skin that limits the flow of blood to the skin and nearby tissues. There are many risk factors that can lead to pressure sores. RISK FACTORS Decreased ability to move. Decreased ability to feel pain or discomfort. Excessive skin moisture from urine, stool, sweat, or secretions. Poor nutrition. Dehydration. Tobacco, drug, or alcohol abuse. Having someone pull on bedsheets that are under you, such as when health care workers are changing your position in a hospital bed. Obesity. Increased adult age. Hospitalization in a critical care unit for longer than 4 days with use of medical devices. Prolonged use of medical devices. Critical illness. Anemia. Traumatic brain injury. Spinal cord injury. Stroke. Diabetes. Poor blood glucose control. Low blood pressure (hypotension). Low oxygen levels. Medicines that reduce blood flow. Infection. DIAGNOSIS Your health care provider will diagnose your pressure ulcer based on its appearance. The health care provider may determine the stage of your pressure ulcer as well. Tests may be done to check for infection, to assess your circulation, or to check for other diseases, such as diabetes. TREATMENT Treatment of your pressure ulcer begins with determining what stage the ulcer is in. Your treatment team may include your health care provider, a front end specialist, a twisting operator, a physical therapist, and a surgeon. Possible treatments may include: Moving or repositioning every 12 hours. Using beds or mattresses to shift your body weight and pressure points frequently. Improving your diet. Cleaning and bandaging (dressing) the open wound. Giving antibiotic medicines. Removing damaged tissue. Surgery and sometimes skin grafts. HOME CARE INSTRUCTIONS If you were hospitalized, follow the care plan that was started in the hospital. Avoid staying in the same position for more than 2 hours. Use padding, devices, or mattresses to cushion your pressure points as directed by your health care provider. Eat a well-balanced diet. Take nutritional supplements and vitamins as directed by your health care provider. Keep all follow-up appointments. Only take [id number] or prescription medicines for pain, fever, or discomfort as directed by your health care provider. SEEK MEDICAL CARE IF: Your pressure ulcer is not improving. You do not know how to care for your pressure ulcer. You notice other areas of redness on your skin. You have a fever. SEEK IMMEDIATE MEDICAL CARE IF: You have increasing redness, swelling, or pain in your pressure ulcer. You notice pus coming from your pressure ulcer. You notice a bad smell coming from the wound or dressing. Your pressure ulcer opens up again. Document Released: 09/21/2006 Document Revised: 09/26/2014 Document Reviewed: [employer] Patient Information 2015 [employer]. This information is not intended to replace advice given to you by your health care provider. Make sure you discuss any questions you have with your health care provider. No follow up information was provided. Extracted from: Title: Office Visit Note Author: Di Call PA-C Date: 07/06/15 Assessment/Plan Chronic paraplegia See below for plan. Ordered: Office Visit Level 3 Est [id number] Decubitus ulcer of foot, stage 1 The area on his foot appears to be a pressure ulcer. It is not open asof today. Does not look secondarily infected. Hopefully,it will healby just keeping pressure off the area, including shoes. Thisplan was relayed to the [facility] staff at [facility]. I did d/w pt that the area may need debrided, as there was slight ulceration.He has an appt scheduled with Dr. Lucio on 07/16/15, and will recheck wound at that time.I did d/w Dr. Lucio, and he agreed with plan. He is to come in sooner if the area opens, or continues to enlarge. Also, I d/w Dr. Lucio the pt's requestto take extraASA for pain.He was ok with the pt taking up to 3/day prn pain, but will have to DCif any abdominal upsetor bleeding issues. Pt was very grateful for this. Ordered: Office Visit Level 3 Est [id number]
--- OUTSIDE RECORDS SUMMARY | 2017-02-18 18:26 | XMS REPORT | Referral Summary ---
Author Organization Unknown Address Unknown Phone Unavailable Care Team Providers Care High Lift Mule Operator Name Role Phone Jun Lucio Primary Care Physician [phone] Encounter VC Date(s): 10/24/14 - 10/24/14 [facility], [address] [place] [address]- Discharge Diagnosis: Back pain Discharge Diagnosis: Blood glucose elevated Discharge Diagnosis: Chronic paraplegia Discharge Diagnosis: Benign essential HTN Discharge Diagnosis: Polymyalgia rheumatica Discharge Diagnosis: Skin tag Discharge Diagnosis: Elevated blood sugar Discharge Disposition: Home or Self Care Attending Physician: Stas Lucio MD Admitting Physician: Stas Lucio MD Vital Signs Most recent to 1 oldest [Reference Range]: Blood Pressure 130/80 mmHg [90-140/60-90 mmHg] (10/24/14 10:17 AM) Problem List Condition Effective Dates Status Health Status Informant Allergic Active rhinitis(Confirmed) arthritis(Confirmed) Resolved Back pain(Confirmed) Resolved Benign essential Resolved HTN(Confirmed) Benign essential Active hypertension(Confirm ed) 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) Cardiomegaly(Confirm Active ed) Cerebrovascular Resolved accident(Confirmed) Cerebrovascular Resolved disease(Confirmed) Chronic Active prostatitis(Confirme d) Chronic sinus Active infection(Confirmed) Conjunctivitis(Confi Active rmed) COPD(Confirmed) Resolved Generalized Active osteoarthrosis, involving multiple sites(Confirmed) Disorder - Active ulcers(Confirmed) Disorder - blood Active clots lungs/legs(Confirmed ) Diverticula, bladder Active - multiple, wide-mouth(Confirmed ) EDEMA(Confirmed) Resolved Hearing Active loss(Confirmed) hyperlipidemia(Confi Resolved rmed) hypertension(Confirm Resolved ed) Elevated blood Active sugar(Confirmed) LPRD Active (laryngopharyngeal [...] Reaction Active sulfanilamide topical Unknown Active Medications [place] 5 mg-325 mg oral tablet 2 tabs, Oral, q8hr, [facility] [phone], # 30 tabs, 0 Refill(s) Special Instructions: [facility] [phone] Start Date: 07/12/14 Status: Ordered [place] 5 mg-325 mg oral tablet 1 tabs, Oral, q8hr, [facility] [phone], # 30 tabs, 0 Refill(s) Special Instructions: [facility] [phone] Start Date: 07/12/14 Status: Ordered oxyCODONE 5 mg oral tablet 0.5 tabs, Oral, q6hr, as needed for pain, 0 Refill(s) Start Date: 03/05/14 Status: Ordered Results Hematology Most recent to 1 oldest [Reference Range]: WBC [4.8-10.8 K/uL] 8.0 K/uL (10/24/14 11:03 AM) RBC [4.60-6.20 M/uL] 4.53 M/uL *LOW* (10/24/14 11:03 AM) Hgb [14.0-18.0 14.0 gm/dL gm/dL] (10/24/14 11:03 AM) Hct [42.0-52.0 %] 42.3 % (10/24/14 11:03 AM) MCV [82.0-99.0 fL] 93.4 fL (10/24/14 11:03 AM) MCH [27.0-32.0 pg] 30.9 pg (10/24/14 11:03 AM) MCHC [32.0-36.0 33.1 gm/dL gm/dL] (10/24/14 11:03 AM) RDW [11.5-14.5 %] 14.9 % *HI* (10/24/14 11:03 AM) Platelet [150-400 244 K/uL K/uL] (10/24/14 11:03 AM) MPV [8.8-14.8 fL] 10.8 fL (10/24/14 11:03 AM) Immature 0.3 % Granulocytes (10/24/14:03 AM) [0.0-1.0 %] Neutrophils [51-75 68 % %] (10/24/14:03 AM) Lymphocytes [20-46 20 % %] (10/24/14 AM) Monocytes [4-11 %] 8 % (10/24/14 AM) Eosinophils [0-4 %] 3 % (10/24/1403 AM) Basophils [0-2 %] 1 % (10/24/14:03 AM) Neutro Absolute 5.42 THOUS [1.90-7.00 THOUS] (10/24/14 AM) Lymph Absolute 1.60 THOUS [0.80-3.30 THOUS] (10/24/14: AM) [place] Absolute 0.61 THOUS [0.30-1.00 THOUS] (10/24/14 AM) Eos Absolute 0.25 THOUS [0.00-0.50 THOUS] (10/24/14:03 AM) Baso Absolute 0.07 THOUS [0.00-0.20 THOUS] (10/24/14: AM) Chemistry Most recent to 1 oldest [Reference Range]: Sodium Lvl [135-144 141 mEq/L mEq/L] (10/24/14: AM) Potassium Lvl 3.7 mEq/L [3.5-5.2 mEq/L] (10/24/14 AM) Chloride [99-111 104 mEq/L mEq/L] (10/24/14 AM) CO2 [23-31 mEq/L] 26 mEq/L (10/24/14 11:03 AM) AGAP [3-20] 11 (10/24/14 11 AM) BUN [8-26 mg/dL] 18 mg/dL (10/24/14 11:03 AM) Glucose Lvl [70-99 113 mg/dL mg/dL] *HI* (10/24/14 11:03 AM) Creatinine Lvl 0.93 mg/dL [0.72-1.25 mg/dL] (1/20/15 11:03 AM) eGFR [>60 mL/min] >60 mL/min 1 (10/24/14 11:03 AM) Calcium Lvl 9.1 mg/dL [8.9-10.5 mg/dL] (10/24/14 11:03 AM) Albumin Lvl [3.4-4.8 3.9 gm/dL gm/dL] (10/24/14 11:03 AM) Total Protein 6.4 gm/dL [6.2-8.1 gm/dL] (10/24/14 11:03 AM) Globulin [1.8-4.0 2.5 gm/dL gm/dL] (10/24/14 11:03 AM) ALT [0-55 unit/L] 19 unit/L (10/24/14 11:03 AM) AST [5-34 unit/L] 19 unit/L (10/24/14 11:03 AM) Alk Phos [40-150 127 unit/L unit/L] (10/24/14 11:03 AM) Bili Total [0.2-1.2 0.3 mg/dL mg/dL] (10/24/14 11:03 AM) T4 Free [0.7-1.5 0.8 ng/dL ng/dL] (10/24/14 11:03 AM) TSH with Reflex Free 6.43 T4 [0.35-4.94] *HI* (10/24/14 11:03 AM) Hgb A1c [4.1-5.6 %] 5.7 % *HI* (10/24/14 11:03 AM) eAvg Glucose 116.9 mg/dL (10/24/14 11:03 AM) 1Result Comment: Multiply eGFR results by [...] Author: Stas Lucio MD Date: Family Medicine Back Exercises Back exercises help treat and prevent back injuries. The goal of back exercises is to increase the strength of your abdominal and back muscles and the flexibility of your back. These exercises should be started when you no longer have back pain. Back exercises include: Pelvic Tilt. Lie on your back with your knees bent. Tilt your pelvis until the lower part of your back is against the floor. Hold this position 5 to 10 sec and repeat 5 to 10 times. Knee to Chest. Pull first 1 knee up against your chest and hold for 20 to 30 seconds, repeat this with the other knee, and then both knees. This may be done with the other leg straight or bent, whichever feels better. Sit-Ups or Curl-Ups. Bend your knees 90 degrees. Start with tilting your pelvis, and do a partial, slow sit-up, lifting your trunk only 30 to 45 degrees off the floor. Take at least 2 to 3 seconds for each sit-up. Do not do sit-ups with your knees out straight. If partial sit-ups are difficult, simply do the above but with only tightening your abdominal muscles and holding it as directed. Hip-Lift. Lie on your back with your knees flexed 90 degrees. Push down with your feet and shoulders as you raise your hips a couple inches off the floor; hold for 10 seconds, repeat 5 to 10 times. Back arches. Lie on your stomach, propping yourself up on bent elbows. Slowly press on your hands, causing an arch in your low back. Repeat 3 to 5 times. Any initial stiffness and discomfort should lessen with repetition over time. Shoulder-Lifts. Lie face down with arms beside your body. Keep hips and torso pressed to floor as you slowly lift your head and shoulders off the floor. Do not overdo your exercises, especially in the beginning. Exercises may cause you some mild back discomfort which lasts for a few minutes; however, if the pain is more severe, or lasts for more than 15 minutes, do not continue exercises until you see your caregiver. Improvement with exercise therapy for back problems is slow. See your caregivers for assistance with developing a proper back exercise program. Document Released: 10/29/2005 Document Revised: 12/13/2012 Document Reviewed: [employer] Patient Information 2014 [employer]. No follow up information was provided. Extracted from: Title: Office Visit Note Author: Stas Lucio MD Date: 10/24/14 Assessment/Plan Back pain This issue is stable and appropriate refills, lab, and f/u have been discussed. The patients detention orders were completed and returned. Any family present agreed with the current plan. The patient is to f/ u in sixty days or sooner if needed. Any pertinent lab was also ordered. The patient has family members present who are agreeable with today's plan and have no additional concerns or requests. Benign essential HTN This issue is stable and appropriate refills, lab, and f/ u have been discussed. The patient reports their blood pressure has been stable at home and is not having any significant or related problems. There has been no chest pain, chest pressure, soa/marie. Blood glucose elevated This issue is stable and appropriate refills, lab, and f/u have been discussed. Ordered: CBC w/ Differential Comprehensive Metabolic Panel Hemoglobin A1c TSH with Reflex Free T4 Chronic paraplegia This issue is stable and appropriate refills, lab, and f/u have been discussed. Has neurogenic bladder. Elevated blood sugar This issue is stable and appropriate refills, lab, and f/ u have been discussed. Lab is pending. Last lab from 03/2014 was reviewed. Polymyalgia rheumatica This issue is stable and appropriate refills, lab, and f/u have been discussed. Lab is pending. Skin tag Consider excision when willing/ready. He requests it be scheduled for removal. The patient has family members present who are agreeable with today's plan and have no additional concerns or requests. NH papers were completed.
--- OUTSIDE RECORDS SUMMARY | 2017-02-18 18:26 | XMS REPORT | Referral Summary ---
Author Author [facility] Organization [facility] Address Unknown Phone Unavailable Care Team Providers Care Java Application Developer Name Role Phone Jun Lucio Primary Care Physician [phone] Encounter VC Date(s): 02/15/15 - 02/15/15 [facility] [address] [place] [address]- Discharge Disposition: 01-Home or Self Care Attending [...] Reaction Active sulfanilamide topical Unknown Active 1[facility] documented as allergy. Medications acetaminophen 325 mg [...] Refill(s), Supply Start Date: 07/24/15 Status: Ordered [place] 5 mg-325 mg oral tablet 2 tabs, Oral, q8hr, [facility] [phone], # 30 tabs, 0 Refill(s) Start Date: 07/12/14 Status: Ordered [place] 5 mg-325 mg oral tablet 1 tabs, Oral, q8hr, [facility] [phone], # 30 tabs, 0 Refill(s) Start Date: [...] failure. Hyperparathyroidism. Medications. Renal artery stenosis. Pheochromocytoma. Caitlin's disease. Coarctation of the aorta. Scleroderma renal [...] Released: 09/21/2006 Document Revised: 12/13/2012 Document Reviewed: [facility] Patient Information 2014 [employer]. No follow up information was provided. Extracted [...] and f/u have been discussed. The patients fci orders were completed and returned. Any family [...]
--- OUTSIDE RECORDS SUMMARY | 2017-02-18 18:26 | XMS REPORT | Continuity of Care Document ---
Author Author Erica Brannon LPN, VC Ambulatory Address [facility] [place] [address] Phone Unavailable Care Team Providers Care Senior Abap Developer Name Role Phone Stas Lucio PP Unavailable Payers Payer name Insurance type Covered constitution party ID Authorization(s) Unknown Problems Condition Effective Dates (start - stop) Clinical Status Lumbago - *Acute Hypertension, Benign - *Chronic Unspecified cerebrovascular disease - *Chronic BPH - *Chronic Polymyalgia rheumatica - *Chronic Other and unspecified hyperlipidemia - *Chronic FM HX PROSTATE MALIG - PURE HYPERCHOLESTEROLEM - HYPERTENSION NOS - CARDIOMEGALY - TRANS CEREB ISCHEMIA NOS - ALLERGIC RHINITIS NEC - BPH W URINARY OBS/LUTS - GENERAL OSTEOARTHROSIS - OSTEOARTHROS NOS-L/LEG - 725 - POLYMYALGIA RHEUMATICA - 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 - * Controlled Family history of malignant neoplasm of prostate - *Routine Polymyalgia rheumatica - *Chronic Hypertension, Benign - [...] *Chronic Other and unspecified hyperlipidemia - *Chronic Knee pain - *Chronic Polymyalgia rheumatica - [...] *Chronic NEED FOR PROPHYLACTIC VACCINATION WITH COMBINED [id number] ( DTP) (DTAP) VACCINE - BPH - [...] Dosage Effective Dates (start - stop) Status Claritin 10 mg tablet 1 PO QD - Active Atrovent 0.06 % Nasal [place] 2 sprays to ea nostril tid prn - Active Plavix 75 mg tablet patient takes 1 tap 2 ds per week on mon and fri - Active finasteride 5 mg tablet Take [...] Height Weight Pulse Rate Blood Pressure Temperature /11:23:00 68.00 in 176.00 lbs 180/90 mm[Hg] 97.4 F Procedures Procedure Date Unknown Encounters Encounter Location Date Patient Visit [facility] Patient Visit Conversion Patient Visit [facility] Patient Visit [facility] Urology Patient Visit [facility] Patient Visit [facility] Patient Visit [facility] Urology Patient Visit [facility] Patient Visit [facility] Patient Visit [facility] Patient Visit [facility] Patient Visit [facility] Patient Visit [facility] Rheum Patient Visit [facility] Patient Visit [facility] Urology Patient Visit [facility] Advance Directives Directive Effective Date Unknown
--- OUTSIDE RECORDS SUMMARY | 2017-02-18 18:26 | XMS REPORT | Referral Summary ---
Author Organization Unknown Address Unknown Phone Unavailable Care Team Providers Care Necktie Centralizing Machine Operator Name Role Phone Jun Lucio Primary Care Physician [phone] Encounter VC Date(s): 11/01/14 - 11/01/14 [facility], [address] [place] [address]- Discharge Diagnosis: Cerebrovascular disease Discharge Diagnosis: Adult hypothyroidism Discharge Diagnosis: Benign neoplasm of other specified sites of skin Discharge Diagnosis: Elevated blood sugar Discharge Disposition: Home or Self Care Attending Physician: Stas Lucio MD Admitting Physician: Stas Lucio MD Vital Signs Most recent to 1 oldest [Reference Range]: Temperature Tympanic 36.3 degC [36.6-38.1 degC] *LOW* (11/01/14 10:05 AM) Peripheral Pulse 80 bpm Rate [60-100 bpm] (11/01/14 10:05 AM) Blood Pressure 148/76 mmHg [90-140/60-90 mmHg] *HI* (11/01/14 10:05 AM) Problem List Condition Effective Dates Status [...] Reaction Active sulfanilamide topical Unknown Active Medications [place] 5 mg-325 mg oral tablet 2 tabs, Oral, q8hr, [facility] [phone], # 30 tabs, 0 Refill(s) Special Instructions: [facility] [phone] Start Date: 07/12/14 Status: Ordered [place] 5 mg-325 mg oral tablet 1 tabs, Oral, q8hr, [facility] [phone], # 30 tabs, 0 Refill(s) Special Instructions: [facility] [phone] Start Date: 07/12/14 Status: Ordered oxyCODONE 5 mg oral tablet 0.5 tabs, Oral, q6hr, as needed for pain, 0 Refill(s) Start Date: 03/05/14 Status: Ordered Results No data available for this section Immunizations Vaccine Date Refusal Reason tetanus/diphth/pertuss (Tdap) adult/adol 11/12/12 pneumococcal 23-polyvalent vaccine 07/17/94 tetanus-diphth toxoids (Td) adult/adol 11/01/97 Procedures Procedure Date Related Diagnosis Body Site Shaving of epidermal or dermal lesion, single 11/01/14 lesion, scalp, neck, hands, feet, genitalia; lesion diameter 0.5 cm or less Colonoscopy 02/22/09 Esophagogastroduodenoscopy1 02/22/09 Cystoscopy with transrectal needle prostate 08/30/07 bx Appendectomy Polypectomy - sinus Tonsillectomy Vasectomy 1showing Love's, no dysplasia, 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 Hyperglycemia can happen for many reasons, but it most often happens to people who do not know they have diabetes or are not managing their diabetes properly. CAUSES Whether you have diabetes or not, there are other causes of hyperglycemia. Hyperglycemia can occur when you have diabetes, but it can also occur in other situations that you might not be as aware of, such as: Diabetes If you have diabetes and are having problems controlling your blood glucose , hyperglycemia could occur because of some of the following reasons: Not following your meal plan. Not taking your diabetes medications or not taking it properly. Exercising less or doing less activity than you normally do. Being sick. Pre-diabetes This cannot be ignored. Before people develop Type 2 diabetes, they almost always have "pre-diabetes." This is when your blood glucose levels are higher than normal, but not yet high enough to be diagnosed as diabetes. Research has shown that some long-term damage to the body, especially the heart and circulatory system, may already be occurring during pre-diabetes. If you take action to manage your blood glucose when you have pre-diabetes, you may delay or prevent Type 2 diabetes from developing. Stress If you have diabetes, you may be "diet" controlled or on oral medications or insulin to control your diabetes. However, you may find that your blood glucose is higher than usual in the hospital whether you have diabetes or not. This is often referred to as "stress hyperglycemia." Stress can elevate your blood glucose. This happens because of hormones put out by the body during times of stress. If stress has been the cause of your high blood glucose, it can be followed regularly by your caregiver. That way he/she can make sure your hyperglycemia does not continue to get worse or progress to diabetes. Steroids Steroids are medications that act on the infection fighting system (immune system ) to block inflammation or infection. One side effect can be a rise in blood glucose. Most people can produce enough extra insulin to allow for this rise, but for those who cannot, steroids make blood glucose levels go even higher. It is not unusual for steroid treatments to "uncover" diabetes that is developing. It is not always possible to determine if the hyperglycemia will go away after the steroids are stopped. A special blood test called an A1c is sometimes done to determine if your blood glucose was elevated before the steroids were started. SYMPTOMS Thirsty. Frequent urination. Dry mouth. Blurred vision. Tired or fatigue. Weakness. Sleepy. Tingling in feet or leg. DIAGNOSIS Diagnosis is made by monitoring blood glucose in one or all of the following ways: A1c test. This is a chemical found in your blood. Fingerstick blood glucose monitoring. Laboratory results. TREATMENT First, knowing the cause of the hyperglycemia is important before the hyperglycemia can be treated. Treatment may include, but is not be limited to: Education. Change or adjustment in medications. Change or adjustment in meal plan. Treatment for an illness, infection, etc. More frequent blood glucose monitoring. Change in exercise plan. Decreasing or stopping steroids. Lifestyle changes. HOME CARE INSTRUCTIONS Test your blood glucose as directed. Exercise regularly. Your caregiver will give you instructions about exercise. Pre-diabetes or diabetes which comes on with stress is helped by exercising. Eat wholesome, balanced meals. Eat often and at regular, fixed times. Your caregiver or household assistant will give you a meal plan to guide your sugar intake. Being at an ideal weight is important. If needed, losing as little as 10 to 15 pounds may help improve blood glucose levels. SEEK MEDICAL CARE IF: You have questions about medicine, activity, or diet. You continue to have symptoms (problems such as increased thirst, urination , or weight gain). SEEK IMMEDIATE MEDICAL CARE IF: You are vomiting or have diarrhea. Your breath smells fruity. You are breathing faster or slower. You are very sleepy or incoherent. You have numbness, tingling, or pain in your feet or hands. You have chest pain. Your symptoms get worse even though you have been following your caregiver' s orders. If you have any other questions or concerns. Document Released: 03/17/2002 Document Revised: 12/13/2012 Document Reviewed: [facility] Patient Information 2014 [employer]. No follow up information was provided. Extracted from: Title: Office Visit Note Author: Stas Lucio MD Date: 11/01/14 Assessment/Plan Adult hypothyroidism This issue is stable and appropriate refills, lab, and f/ u have been discussed. Started on meds. The patients usp orders were completed and returned. Any family present agreed with the current plan. The patient is to f/u in sixty days or sooner if needed. Any pertinent lab was also ordered. Benign neoplasm of other specified sites of skin The area was prepped and draped in sterile fashion. 1/10 of a cc of 1% lidocaine with epi was used for local anesthesia. The area was elevated and a very superficial removal with iris scissors was used for removal and the lesion sent for pathology. Silver nitrate was used for local cautery and no bleeding occurred. Swelling is anticipated and was discussed. Routine wound care, topical abx given with a tiny dressing to keep clean. Close f/u for any difficulties. Patient was agreeable.The lesion was less then 1/2 cm in diameter. Cerebrovascular disease This issue is stable and appropriate refills, lab, and f/u have been discussed. Elevated blood sugar This issue is stable and appropriate refills, lab, and f/ u have been discussed. Lab reviewed.
--- OUTSIDE RECORDS SUMMARY | 2017-02-18 18:26 | XMS REPORT | Referral Summary ---
Author Author [facility] Organization [facility] Address Unknown Phone Unavailable Care Team Providers Care Predatory Animal Exterminator Name Role Phone Storm Patino Primary Care Physician [phone] Encounter VC Date(s): 07/16/15 - 07/16/15 [facility] [address] [place] [address]- Discharge Disposition: 01-Home or Self Care Attending [...] Reaction Active sulfanilamide topical Unknown Active 1[facility] documented as allergy. Medications acetaminophen 325 mg [...] Refill(s), Supply Start Date: 07/24/15 Status: Ordered [place] 5 mg-325 mg oral tablet 2 tabs, Oral, q8hr, [facility] [phone], # 30 tabs, 0 Refill(s) Start Date: 07/12/14 Status: Ordered [place] 5 mg-325 mg oral tablet 1 tabs, Oral, q8hr, [facility] [phone], # 30 tabs, 0 Refill(s) Start Date: [...] realistic goals. Your health care provider or certified lactation educator can help you make an activity plan [...] Released: 12/11/2004 Document Revised: 02/05/2015 Document Reviewed: [employer] Patient Information 2015 [facility]. This information is not intended to replace [...] and f/u have been discussed. The patients snf orders were completed and returned. Any family [...]
--- OUTSIDE RECORDS SUMMARY | 2017-02-18 18:26 | XMS REPORT | Referral Summary ---
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 Medications acetaminophen 325 mg [...] Refill(s), Supply Start Date: 07/24/15 Status: Ordered [place] 5 mg-325 mg oral tablet 2 tabs, Oral, q8hr, [facility] [phone], # 30 tabs, 0 Refill(s) Start Date: 07/12/14 Status: Ordered [place] 5 mg-325 mg oral tablet 1 tabs, Oral, q8hr, [facility] [phone], # 30 tabs, 0 Refill(s) Start Date: [...] Smoking Status Never smoker Assessment and Plan No data available for this section
--- OUTSIDE RECORDS SUMMARY | 2017-02-18 18:26 | XMS REPORT | Continuity of Care Document ---
Author Author Verito Acuña MA [facility] Amb[facility] Address [address] [place] [address] Phone Care Team Providers Care Joist Setter Name Role Phone Stas Lucio PP Unavailable Stas Lucio RP Unavailable Payers Payer name Insurance type Covered alliance party ID Authorization(s) Unknown Problems Condition Effective Dates (start - stop) Clinical Status Lower extremity weakness - *Acute Lower back pain - *Acute FM HX PROSTATE MALIG - PURE HYPERCHOLESTEROLEM [...] *Chronic NEED FOR PROPHYLACTIC VACCINATION WITH COMBINED [id number] ( DTP) (DTAP) VACCINE - Low back [...] - stop) Status Atrovent 0.06 % Nasal Colbert 2 sprays to ea nostril tid prn [...] Height Weight Pulse Rate Blood Pressure Temperature /07:57:00 68.00 in 168.20 lbs 63 /min 154/89 mm[Hg] 96.2 F Procedures Procedure Date Unknown Encounters Encounter Location Date Patient Visit [facility] Mur Rheum Patient Visit Conversion Patient Visit [facility] New Urology Patient Visit [facility] New FM Patient Visit [facility] New FM Patient Visit [facility] FC Pain Patient Visit [facility] U[facility] Patient Visit [facility] New FM Patient Visit [facility] New FM Patient Visit [facility] New FM Patient Visit [facility] New FM Patient Visit [facility] New FM Patient Visit [facility] Patient Visit [facility] Mur Rheum Patient Visit [facility] Patient Visit [facility] Patient Visit [facility] Urology Patient Visit [facility] Advance Directives Directive Effective Date Unknown
--- OUTSIDE RECORDS SUMMARY | 2017-02-18 18:26 | XMS REPORT | Referral Summary ---
Author Author [facility] Organization [facility] Address Unknown Phone Unavailable Care Team Providers Care Bucket Turner Name Role Phone Storm Patino Primary Care Physician [phone] Encounter VC Date(s): 07/06/15 - 07/06/15 [facility] [address] [place] [address]- Discharge Diagnosis: Chronic paraplegia Discharge Diagnosis: Decubitus [...] Reaction Active sulfanilamide topical Unknown Active [facility] documented as allergy. Medications acetaminophen 325 mg [...] Refill(s), Supply Start Date: 07/24/15 Status: Ordered Vicco 5 mg-325 mg oral tablet 2 tabs, Oral, q8hr, [employer] [phone], # 30 tabs, 0 Refill(s) Start Date: 07/12/14 Status: Ordered Vicco 5 mg-325 mg oral tablet 1 tabs, Oral, q8hr, [employer] [phone], # 30 tabs, 0 Refill(s) Start Date: [...] may include your health care provider, a recreation program specialist, a javascript programmer, a physical therapist, and a surgeon. Possible [...] provider. Keep all follow-up appointments. Only take [id number] or prescription medicines for pain, fever, or [...] Released: 09/21/2006 Document Revised: 09/26/2014 Document Reviewed: [facility] Patient Information 2015 [employer]. This information is not intended to replace advice given to you by your health care provider. Make sure you discuss any questions you have with your health care provider. No follow up information was provided. Extracted from: Title: Office Visit Note Author: Di Call PA-C Date: 07/06/15 Assessment/Plan Chronic paraplegia See below for plan. Ordered: Office Visit Level 3 Est 83511 Decubitus ulcer of foot, stage 1 The area on his foot appears to be a pressure ulcer. It is not open asof today. Does not look secondarily infected. Hopefully,it will healby just keeping pressure off the area, including shoes. Thisplan was relayed to [facility] staff at [facility]. I did d/w pt [...] this. Ordered: Office Visit Level 3 Est 97626
--- OUTSIDE RECORDS SUMMARY | 2017-02-18 18:27 | XMS REPORT | Continuity of Care Document ---
Author Author [facility] Amb[facility] Address Unknown Phone Unavailable Care Team Providers Care Food And Nutrition Teacher Name Role Phone Stas Lucio PP Unavailable Stas Lucio RP Unavailable Payers Payer name Insurance type Covered constitution party ID Authorization(s) Unknown Problems Condition Effective Dates (start - stop) Clinical Status Thoracic back pain - *Resolved Urinary frequency - *Controlled Neurogenic bladder, NOS - *Controlled Other postprocedural status - *Controlled Cerebrovascular disease, unspecified - *Controlled Other alteration of consciousness - *Resolved Urinary frequency - *Controlled Hypertension, Benign - *Controlled Polymyalgia rheumatica - *Controlled Spinal stenosis of lumbar region - *Symptomatic FM HX PROSTATE MALIG - PURE HYPERCHOLESTEROLEM [...] - *Acute Lower back pain - *Acute Hypertension, benign - *Controlled Polymyalgia rheumatica - *Controlled Cerebrovascular disease, unspecified - *Chronic Paraplegia - *Chronic Polymyalgia rheumatica - *Controlled Chronic osteomyelitis, site unspecified - *Controlled Knee pain - *Chronic Polymyalgia rheumatica - [...] *Chronic NEED FOR PROPHYLACTIC VACCINATION WITH COMBINED [id number] ( DTP) (DTAP) VACCINE - Low back [...] Dosage Effective Dates (start - stop) Status See [facility] for current meds. - Active Fingerless gloves for propelling wheelchair. - No Longer Active oxycodone 5 mg tablet take 1 tablet (5MG) by oral route every 4 hours as needed 5 MG - Active Immunizations Vaccine Date Status Comments Tdap (Boostrix r) completed Td (adult) completed - Completed reason: source unspecified pneumo (2 yrs or older) (PPV23) completed - Completed reason: source unspecified Results Test Name Date and Time Measure Units Reference Range Abnormal Flag Comments Unknown Vital Signs Date / Time: Height Weight Pulse Rate Blood Pressure Temperature /09:05:00 67.00 in 170.00 lbs 130/70 mm[Hg] 97.6 F Procedures Procedure Date Unknown Encounters En[facility] New Patient Visit [facility] FC Pain Patient Visit Conversion Patient [facility] Patient [facility] Patient Visit [facility] Mur Rheum Patient Visit [facility] Patient Visit [facility] Patient Visit [facility] Urology Patient Visit [facility] Advance Directives Directive Effective Date Unknown
--- OUTSIDE RECORDS SUMMARY | 2017-02-18 18:27 | XMS REPORT | Referral Summary ---
Author Author [facility] Organization [facility] Address Unknown Phone Unavailable Care Team Providers Care Pl Sql Developer Name Role Phone Storm Patino Primary Care Physician [phone] Encounter Date(s): 07/24/15 - 07/24/15 [facility] [address] [place] [address] [place] [address]- Discharge Diagnosis: Chronic indwelling ho catheter Discharge [...] Reaction Active sulfanilamide topical Unknown Active [facility] documented as allergy. Medications acetaminophen 325 mg [...] Refill(s), Supply Start Date: 07/24/15 Status: Ordered [place] 5 mg-325 mg oral tablet 2 tabs, Oral, q8hr, [employer] [phone], # 30 tabs, 0 Refill(s) Start Date: 07/12/14 Status: Ordered [place] 5 mg-325 mg oral tablet 1 tabs, Oral, q8hr, [employer] [phone], # 30 tabs, 0 Refill(s) Start Date: [...]
--- OUTSIDE RECORDS SUMMARY | 2017-02-18 18:27 | XMS REPORT | Continuity of Care Document ---
Author Author Niki Mai MA, [facility] Ambulatory Address [facility] [place] [address] Phone Unavailable Care Team Providers Care Maintenance Assistant Name Role Phone Stas Lucio PP Unavailable Stas Lucio RP Unavailable Payers Payer name Insurance type Covered green party ID Authorization(s) Unknown Problems Condition Effective Dates (start - stop) Clinical Status Spinal stenosis of lumbar region - *Symptomatic [...] *Chronic NEED FOR PROPHYLACTIC VACCINATION WITH COMBINED [id number] ( DTP) (DTAP) VACCINE - Low back [...] Height Weight Pulse Rate Blood Pressure Temperature /15:31:00 67.00 in 170.00 lbs 136/82 mm[Hg] 97.2 F Procedures Procedure Date Unknown Encounters Encounter Location Date Patient Visit [facility] FC Pain Patient Visit Conversion Patient Visit [facility] Urology Patient Visit [facility] FM Patient Visit [facility] Patient Visit [facility] Patient Visit [facility] Patient Visit [facility] Patient Visit [facility] Patient Visit [facility] Patient Visit [facility] Mur Rheum Patient Visit [facility] Patient Visit [facility] Patient Visit [facility] Mur Rheum Patient Visit [facility] Patient Visit [facility] Patient Visit [facility] Urology Patient Visit [facility] Advance Directives Directive Effective Date Unknown
[2017-02-18 18:40] VITALS: Ht 170.2 cm; Wt 76.4 kg
--- NOTE | 2017-02-18 19:13 | ERPDOC ---
Departure Disposition Decision Date: February 18, 2017 Disposition Decision Time: 23:35 Disposition: 01 DISCHARGED HOME, SELF-CARE Impression Impression Impression: Primary Impression: Abdominal pain Severity: Moderate Condition: Stable Seen By: Mid-level only Referrals: HENRY MARQUEZ MD (Family) Patient Instructions: Abdominal Pain (ED) Problems/Meds/Labs Reviewed?: Yes Medications reviewed and manag: Yes Additional Instructions: Your labs did not show any acute findings. CT of your abdomen did not show any acute findings. You have a right renal cyst which is chronic. Your abdominal x-rays showed a large amount of gas in your bowel which is why you feel bloated and your abdomen is distended. You may take OTC Gas-X as needed. Follow with your PCP in the next 48 hours for re-evaluation. Follow up care ordered?: Yes Mental Status: Alert, Oriented HPI - Abdominal Pain General Chief Complaint: Abdominal Pain Stated Complaint: LOWER QUADRANT PAIN Time Seen by Provider: 19:11 Source: patient, family HPI - Abdominal Pain Initial Comments 86-year-old male presents to ER from [facility] with complaint of ongoing right quadrant pain and abdominal pain that wraps around like a belt which has been going on for approximately 6 weeks. Patient was found to have a UTI and started on antibiotics on January 16. Patient does have an indwelling Gilbert catheter. Patient reports that he bloats often and probably does have quite a bit of gas. He has had labs and x-rays according to him and his daughter who accompanies him. At this time patient rates his pain 1/10, however says that it was severe this afternoon for several minutes. Pain is worse at night when he is lying flat. Says that Mylanta and this has helped pain. Daughter states that they were suppose to increase patient omeprazole. Patient denies fever, chills, nausea, vomiting, constipation, diarrhea or dysuria. Pain Scale: Now: 1/10, Worst: 9/10 Location: RLQ, other (bilateral medial abdominal pain) Modifying Factors: WORSE WITH: lying down Associated Symptoms: other, DENIES: chest pain, diaphoresis, fatigue, fever/ chills, headache, heartburn, nausea/vomiting, rash, shortness of breath, swelling/mass in abdomen, syncope, weakness Allergies: Coded Allergies: Penicillins (Verified Allergy, Unknown, RASH, 01/30/16) Sulfa (Sulfonamide Antibiotics) (Verified Allergy, Unknown, RASH, 01/30/16) clarithromycin (Verified Allergy, Unknown, RASH, 01/30/16) influenza virus vaccine, specific (Verified Allergy, Unknown, 01/30/16) quinapril HCl (Verified Allergy, Unknown, MADE HIM CRAZY, 01/30/16) Past History Past Medical History Metabolic: hypercholesterolemia, hypertension ENMT: allergies Cardiac: DENIES: angina Respiratory: DENIES: asthma GI: GERD Male: BPH, other, prostatitis Neurological: TIA, other Musculoskeletal: back pain, osteoarthritis Psychological: depression Surgical History General: appendix, back, other Family History Family PMH: FOUND: [place], cancer Vaccines Hx Influenza Vaccination: No Hx Pneumococcal Vaccination: No Social History Housing: [facility] Review of Systems Constitutional Constitutional: DENIES: chills, dizziness, fever, weakness Eyes General: DENIES: erythema, exudate Lids/Accessories: DENIES: erythema, swelling ENMT Ears: DENIES: pain Sinuses: DENIES: congestion, rhinorrhea Mouth/Throat: DENIES: sore throat Cardiovascular Cardiac: DENIES: chest pain, murmur Rhythm/Rate: DENIES: palpitations Pulmonary Respiratory: DENIES: cough, dyspnea GI Upper Abdomen: DENIES: nausea, pain, vomiting Lower Abdomen: pain, see HPI, DENIES: diarrhea General: DENIES: dysuria, pain Musculoskeletal General: DENIES: joint pain, pain, tenderness Integumentary Skin: DENIES: color change, itching, rash Neurological General: DENIES: ataxia, change in strength, numbness, paralysis/paresis, weakness Psychiatric Psychiatric: DENIES: anxiety, depression, nervousness Physical Exam General General Nourishment: well nourished, well developed, no acute distress, adult General Body Habitus: well groomed Vitals and Pain First Documented Vital Signs Date Time Temp Pulse Resp B/P Pulse Ox O2 Delivery O2 Flow Rate FiO2 02/18/17 18:40 98.3 90 20 137/83 98 Room Air Weight: Kilograms: Height (feet): 5 Height (inches): 7 Triage Pain Scale: Eyes (brief) Eyes Brief: found: EOMI ENMT (brief) ENMT Brief: FOUND: mucosa moist, NOT FOUND: nasal exudate, nasal swelling, pharnyx erythema Neck (brief) Neck: FOUND: trachea midline, NOT FOUND: adenopathy, tenderness, thyromegaly Respiratory (brief) Respiratory: FOUND: clear all hilton, equal bilaterally, symmetrical Cardiovascular (brief) Cardiac: FOUND: regular rate, regular rhythm Abdomen Inspection: NOT FOUND: distention Palpation: FOUND: soft, tender (Mild RLQ pain to palpation), NOT FOUND: McBurney's point tender, Psoas sign, Rosving's sign, hepatomegaly, involuntary guarding, rebound, splenomegaly, voluntary guarding Auscultation: FOUND: normoactive (x4) Musculoskeletal (brief) Musculoskeletal Brief: NOT FOUND: tenderness Integumentary (brief) Integumentary Brief: FOUND: dry, pink, warm Neurologic (brief) Neurological Brief: FOUND: motor-no gross deficits, sensory-no gross deficits Psychiatric (brief) Psychiatric Brief: FOUND: alert, normal affect, oriented Differential Diagnoses Considering: Constipation, Diverticulitis, Gastroenteritis, GERD, Ileus, Neoplasm, Ulcer, UTI Progress Results/Orders Orders Lab Results Medications Current ED Medications Simethicone (Mylicon) 80 mg O ONCE PO Last administered on 02/18/17t 21:10; Start 02/18/17 at 21:15; Stop 02/18/17 at 21:17; Status DC Iohexol 1 bottle 1 bottle STK-MED ONCE .ROUTE ; Start 02/18/17 at 22:28; Stop at 22:29; Status DC Sodium Chloride (NS) 100 ml @ As Directed STK-MED ONCE .ROUTE ; Start 02/18/17 at 22:28; Stop 02/18/17 at 22:29; Status DC Sodium Chloride (Iv Flush) 10 ml STK-MED ONCE .ROUTE ; Start 02/18/17 at 22:28; Stop 02/18/17 at 22:29; Status DC Progress Progress CBC and CMP unremarkable. UA 2+ LE, trace of ketones and bacteria, WBC 1-3, patient urine is most likely colonized. Patient has had no abdominal pain in the ED. I discussed labs, KUB and CT findings with patient and his daughter with no known etiology for abdominal pain found. Patient and daughter verbalize understanding of treatment plan, follow up with PCP and return precautions. Xray Xray : Xray: KUB Upright (nonobstructive bowel gas pattern) Interpretation: Interpreted by Me CT CT : CT: Abd/Pelvis IV contrast (No acute disease process, right renal cyst) ELHAM LOMBARDO Emperatriz JARAMILLO February 18, 2017 19:13 Lab Results Laboratory Tests Test 02/18/17 19:51 02/18/17 20:26 White Blood Count 8.2T/MM3 Red Blood Count 4.63M/MM3 Hemoglobin 13.3GM/DL Hematocrit 40.1% Mean Corpuscular Volume 86.6UM3 Mean Corpuscular Hemoglobin 28.7UUG Mean Corpuscular Hemoglobin Concent 33.2GM/DL RDW Standard Deviation 45.5FL Platelet Count 312T/MM3 Mean Platelet Volume 9.6UM3 Immature Granulocyte % (Auto) 0.0% Neutrophils (%) (Auto) 66.2% Lymphocytes (%) (Auto) 20.4% Monocytes (%) (Auto) 8.9% Eosinophils (%) (Auto) 3.8% Basophils (%) (Auto) 0.7% Absolute Immature Granulocyte (auto 0.00T/MM3 Absolute Neutrophils (auto) 5.4T/MM3 Absolute Lymphocytes (auto) 1.7T/MM3 Absolute Monocytes (auto) 0.7T/MM3 Absolute Eosinophils (auto) 0.3T/MM3 Absolute Basophils (auto) 0.1T/MM3 Turbidity < 20 Sodium Level 141MEQ/L Potassium Level 3.9MEQ/L Chloride Level 101MEQ/L Carbon Dioxide Level 27MEQ/L Anion Gap 13MEQ/L Blood Urea Nitrogen 11.0MG/DL Creatinine 0.8MG/DL Glomerular Filtration Rate Calc 91 BUN/Creatinine Ratio 14RATIO Glucose Level 125MG/DL Calculated Osmolality 271MOSM/KG Calcium Level 9.5MG/DL Total Bilirubin 0.60MG/DL Icterus Index < 2 Aspartate Amino Transf (AST/SGOT) 17U/L Alanine Aminotransferase (ALT/SGPT) 27U/L Alkaline Phosphatase 152U/L Total Protein 7.3G/DL Albumin 4.4G/DL Globulin 2.9G/DL Albumin/Globulin Ratio 1.5RATIO Chemistry Specimen Hemolysis < 15 Urine Collection Type Gilbert indwelling Urine Color Yellow Urine Turbidity Clear Urine pH 7.0 Urine Specific [place] 1.010 Urine Protein Negative Urine Glucose (UA) Negative Urine Ketones Trace Urine Blood Negative Urine Nitrite Negative Urine Bilirubin Negative Urine Urobilinogen 0.2EU/DL Urine Leukocyte Esterase 2+ Urine RBC None seen/HPF Urine WBC 1-3/HPF Urine Bacteria Trace Urine Yeast 2+ Urine Culture Indicated Cult not indicated Medications Current ED Medications Simethicone (Mylicon) 80 mg O ONCE PO Last administered on 02/18/17t 21:10; Start 02/18/17 at 21:15; Stop 02/18/17 at 21:17; Status DC Iohexol 1 bottle 1 bottle STK-MED ONCE .ROUTE ; Start 02/18/17 at 22:28; Stop at 22:29; Status DC Sodium Chloride (NS) 100 ml @ As Directed STK-MED ONCE .ROUTE ; Start 02/18/17 at 22:28; Stop 02/18/17 at 22:29; Status DC Sodium Chloride (Iv Flush) 10 ml STK-MED ONCE .ROUTE ; Start 02/18/17 at 22:28; Stop 02/18/17 at 22:29; Status DC ELHAM LOMBARDO APRN February 18, 2017 19:13 ELHAM LOMBARDO APRN February 18, 2017 19:13
--- OUTSIDE RECORDS SUMMARY | 2017-02-18 19:17 | XMS REPORT | Continuity of Care Document ---
Author Author [facility] Organization [facility] Address Unknown Phone Unavailable Allergies Active Description [...] DISC DIS W MYELOP 09/15/2013 Neil Duque MDolrhodna Boateng Final 998.12 HEMATOMA COMPLICATING PX 09/15/2013 [...] External E878.8 ABN RXN-SURGICAL PX NEC 12/27/2013 Ganga Hester MD Final V12.51 HX TRACY THROMBUS/EMBOLISM [...] Status Pt. Type Provider Facility Loc./Unit Complaint [id number] 12/27/2013 11:36:00 2013 16:43:00 DIS Inpatient Mir GARCIA, Ganga Lema [facility] F3BC [id number] 09/15/2013 18:50:00 2013 12:50:00 DIS Inpatient Neto GARCIA, Kingsley Boateng [facility] F7SE
[2017-02-18] MEDS ORDERED: ASPI325T PO (19:22)
[2017-02-18] MEDS ORDERED: FEXO-118 PO (19:22)
[2017-02-18] MEDS ORDERED: LACT1CAP80 PO (19:22)
[2017-02-18] MEDS ORDERED: AMLO5TAB2 PO (19:22)
[2017-02-18] MEDS ORDERED: GUAI120015 PO (19:24)
[2017-02-18] MEDS ORDERED: CRAN405C PO (19:24)
[2017-02-18] MEDS ORDERED: POLY119P3 PO ×2 (19:24→19:27)
[2017-02-18] MEDS ORDERED: CIPR-280 PO (19:27)
[2017-02-18 20:02] LABS: BASOPHILS # (AUTO) 0.1 T/MM3 (0-0.2); BASOPHILS % (AUTO) 0.7 % (0-2); EOSINOPHILS # (AUTO) 0.3 T/MM3 (0-0.5); EOSINOPHILS % (AUTO) 3.8 % (0-4); HCT - HEMATOCRIT 40.1 % (41-53); HGB - HEMOGLOBIN 13.3 GM/DL (13.5-17.5); LYMPHOCYTES # (AUTO) 1.7 T/MM3 (1-4.8); LYMPHOCYTES % (AUTO) 20.4 % (23-45); MEAN CORPUSCULAR HGB 28.7 UUG (26-34); MEAN CORPUSCULAR HGB CONC(MCHC 33.2 GM/DL (31-37); MEAN CORPUSCULAR VOLUME 86.6 UM3 (80-100); MEAN PLATELET VOLUME 9.6 UM3 (9.4-12.4); MONOCYTES # (AUTO) 0.7 T/MM3 (0-0.8); MONOCYTES % (AUTO) 8.9 % (0-9.0); NEUTROPHILS #(AUTO)-ABSOLUTE 5.4 T/MM3 (1.8-7.7); NEUTROPHILS % (AUTO) 66.2 % (33-66); RED BLOOD COUNT 4.63 M/MM3 (4.50-5.90); WBC - WHITE BLOOD COUNT 8.2 T/MM3 (4.5-11.0)
[2017-02-18 20:07] LABS: ALBUMIN 4.4 G/DL (3.5-5.0); ALBUMIN/GLOBULIN RATIO 1.5 RATIO (1.1-2.2); ALKALINE PHOSPHATASE 152 U/L (38-126); ALT (SGPT) 27 U/L (21-72); ANION GAP 13 MEQ/L (5-15); AST (SGOT) 17 U/L (17-59); BUN/CREATININE RATIO 14 RATIO (6-26); CALCIUM 9.5 MG/DL (8.4-10.2); CHLORIDE 101 MEQ/L (98-107); CO2 - CARBON DIOXIDE 27 MEQ/L (22-30); CREATININE 0.8 MG/DL (0.8-1.5); GLOMERULAR FILTRATION RATE 91; GLUCOSE 125 MG/DL (75-110); POTASSIUM 3.9 MEQ/L (3.6-5); SODIUM 141 MEQ/L (134-144); TOTAL PROTEIN 7.3 G/DL (6.3-8.2)
--- NOTE | 2017-02-18 20:27 | NUR ---
UA CATHETER HAS BEEN CLAMPED FOR APPROX 45 MINUTES. UNCLAMPED AND UA COLLECTED. SENT TO LAB
[2017-02-18 20:31] LABS: BLOOD, URINE NEGATIVE (NEGATIVE); COLOR,URINE YELLOW (YELLOW); LEUKOCYTE ESTERASE ,URINE 2+ (NEGATIVE); NITRITE,URINE NEGATIVE (NEGATIVE); UROBILINOGEN,URINE 0.2 EU/DL (NORMAL)
[2017-02-18 20:40] LABS: YEAST,URINE 2+ (NEGATIVE)
[2017-02-18 20:41] LABS: BACTERIA,URINE TRACE (NEGATIVE); RBC,URINE NONE SEEN /HPF (0-3)
[2017-02-18] MEDS ORDERED: SIMETHICONE 67 MG/ML ORAL DROPS PO ONE (21:15)
--- NOTE | 2017-02-18 21:41 | NUR ---
portable xray completed
[2017-02-18] MEDS ORDERED: NORMAL SALINE 100 ML ONE (22:28)
[2017-02-18] MEDS ORDERED: SALINE FLUSH 10ml SYRINGE ONE (22:28)
[2017-02-18] MEDS ORDERED: IOHEXOL 300 MG/ML 100ml INJECTION ONE (22:28)
--- NOTE | 2017-02-18 23:12 | NUR ---
return from ct
--- NOTE | 2017-02-19 00:05 | NUR ---
[facility] SUBMARINE ELEMENT COORDINATOR WILL BE HERE IN ABOUT 1 HOUR
--- NOTE | 2017-02-19 00:15 | NUR ---
report called kayla garcia, nursing staff at [facility] to give her report
[2017-02-19 00:55] VITALS: BP 121/76; PULSE 82; RESP 18; TEMP 97.7; O2SAT 94
--- NOTE | 2017-02-19 00:55 | NUR ---
depart pt leaves via w/c with [facility] transport staff. dc paperwork in the [facility] blue folder given to staff
--- NOTE | 2017-02-19 08:07 | DI ---
Indication: ITS.REASON: band like pain in abdomen, RLQ pain (had had appendectomy PROCEDURE: CT ABD/PELVIS W/CONTRAST ONLY: Encounter: Initial Comparison: None Technique: Axial CT images were performed through the abdomen and pelvis after the administration of intravenous contrast. Coronal and sagittal two-dimensional reformats. Automated Exposure Control and Iterative Reconstruction dose reducing techniques were utilized. Contrast: Omnipaque 300 99 mL Findings: Atelectasis in the lung bases. Calcified granuloma in the left upper lobe. Heart size is grossly normal. The liver is within normal limits. The gallbladder, spleen, pancreas and adrenal glands are within normal limits. Right superior pole renal cyst. Kidneys are otherwise normal. IVC filter in place. Scattered atherosclerotic arterial plaque. Fat-containing umbilical hernia. Bladder is decompressed with a Gilbert catheter with wall thickening. No free fluid. No evidence of a bowel obstruction. Bone windows show degenerative and postoperative changes in the spine. Impression: No acute disease process seen. There is a preliminary report by [facility]. .
--- NOTE | 2017-02-19 08:15 | DI ---
Indication: ITS.REASON: RLQ pain with medial abdominal pain that is intermittent PROCEDURE: KUB W/UPRIGHT: Encounter: Initial Comparison: CT abdomen and pelvis dated February 18, 2017 Findings: The visualized lung bases are clear. There is no free air on the upright view. The bowel gas pattern is nonobstructive and nonspecific. Gas is seen in nondilated small and large bowel to the level of the rectum. Moderate stool is seen throughout the colon. Postoperative and degenerative changes in the spine. IVC filter noted. Impression: Nonobstructive nonspecific bowel gas pattern. .
== END 2017-02-19 00:55 | disposition home or self-care (01) ==
LOC: ED 18:20
DX: R10.31 Right lower quadrant pain (principal); R14.3 Flatulence
CPT/HCPCS: 36415; 74020; 74177; 80053; 81001; 85025; 99284; A9270; J7050; Q9967